=== PATIENT | female | born 1990 | race Caucasian/White ===

== ENCOUNTER 2017-06-07 17:10 | Emergency (ER) | payer SELFPAY ==
[~2017-06-07] VITALS: Ht 160 cm; Wt 96.0 kg
[~2017-06-07 17:10] MED LIST: BCPILLS PO; LEVO50TA6 PO
[2017-06-07 17:22] VITALS: TEMP 37; Ht 160 cm; Wt 96.0 kg
[2017-06-07] MEDS ORDERED: ACETAMINOPHEN 500 MG TAB PO STA (18:24)
[2017-06-07] MEDS ORDERED: ONDANSETRON INJ 2 MG/ML 2 ML VIAL IV STA (18:24)
[2017-06-07] MEDS ORDERED: SODIUM CHLORIDE 0.9% 1000ML 1,000 ML IV STA (18:24)
[2017-06-07] MEDS ORDERED: KETOROLAC TROMETHAMINE 30 MG/ML VIAL IV STA (18:24)
--- NOTE | 2017-06-07 18:26 | EMERGENCY ROOM VISIT NOTE ---
History Report prepared by Khadaribchhaya: Noemí Brandon Under the Supervision of: Dr. Jose G Layton M.D. First contact with patient: 18:05 Chief Complaint: ABDOMINAL PAIN Stated Complaint: LOWER BACK PAIN, ABD PAIN, NAUSEA, DIZZY History of Present Illness The patient is a 27 year old white female with a past medical history of asthma and hyperthyroidism who presents to the ED with a cc of persistent low back pain beginning last night. Positive nausea, lower abdominal pain, abdominal bloating increased urination, vaginal spotting. Negative recent sick contacts or travel. She rates her pain as a 9/10. Her last BM was a few days ago. She last noticed spotting last night, but has noticed none today. She has never undergone abdominal surgery before. Source of History: patient Onset: last night Position: back Symptom Intensity: 9/10 Timing: other (persistent) Associated Symptoms: + nausea, + abdominal pain, + urinary symptoms ( increased urination) Review of Systems See HPI for pertinent positives and negatives. A total of ten systems were reviewed and were otherwise negative. Past Medical & Surgical Medical Problems: (1) Asthma (2) Hyperthyroidism Surgical Problems: (1) History of tonsillectomy Social History Smoking Status: Former Smoker Alcohol Use: occasionally Drug Use: none Marital Status: single Housing Status: lives with family Occupation Status: employed Current/Historical Medications Scheduled Cephalexin Monohydrate (Keflex), 1 CAP PO BID Levothyroxine Sodium (Levothyroxine Sodium), 50 MCG PO DAILY Scheduled PRN Tramadol (Ultram), 50 MG PO Q8H PRN for Pain Allergies Coded Allergies: Codeine (Verified Allergy, Severe, ANAPHYLAXIS, 06/07/17) Physical Exam Vital Signs Date Time Temp Pulse Resp B/P (MAP) Pulse Ox O2 Delivery O2 Flow Rate FiO2 06/07/17 21:08 87 18 112/69 97 Room Air 06/07/17 17:22 37.0 97 16 134/96 96 Room Air Physical Exam GENERAL: Awake, alert, well-appearing, NAD HENT: Normocephalic, atraumatic. EYES: Normal conjunctiva. Sclera non-icteric. NECK: Supple. No nuchal rigidity. FROM. RESPIRATORY: CTAB, no rhonchi, wheezing, crackles CARDIAC: RRR, no MRG ABDOMEN: Soft, mild generalized tenderness, negative Powers's sign, negative obturator's, negative psoas, BS+ MSK: Bilateral CVA tenderness to palpation. No chest wall TTP, no LE edema NEURO: GCS 15, CN 2-12 intact, moves all 4s on command SKIN: No rash or jaundice noted. Medical Decision & Procedures Laboratory Results 06/07/17 18:34 Red Blood Count 5.26, Mean Corpuscular Volume 81.9, Mean Corpuscular Hemoglobin 26.6, Mean Corpuscular Hemoglobin Concent 32.5, Mean Platelet Volume 11.0, Neutrophils (%) (Auto) 74.6, Lymphocytes (%) (Auto) 18.3, Monocytes (%) (Auto) 5.8, Eosinophils (%) (Auto) 1.1, Basophils (%) (Auto) 0.1, Neutrophils # (Auto) 7.40, Lymphocytes # (Auto) 1.82, Monocytes # (Auto) 0.58, Eosinophils # (Auto) 0.11, Basophils # (Auto) 0.01 06/07/17 18:34 Test 06/07/17 18:32 06/07/17 18:34 Urine Color YELLOW Urine Appearance CLOUDY (CLEAR) Urine pH 6.5 (4.5-7.5) Urine Specific [place] 1.015 (1.000-1.030) Urine Protein 1+ (NEG) Urine Glucose (UA) NEG (NEG) Urine Ketones NEG (NEG) Urine Occult Blood 2+ (NEG) Urine Nitrite NEG (NEG) Urine Bilirubin NEG (NEG) Urine Urobilinogen NEG (NEG) Urine Leukocyte Esterase MODERATE (NEG) Urine WBC (Auto) >30 /hpf (0-5) Urine RBC (Auto) 10-30 /hpf (0-4) Urine Hyaline Casts (Auto) 10-30 /lpf (0-5) Urine Epithelial Cells (Auto) >30 /lpf (0-5) Urine Bacteria (Auto) 1+ (NEG) Urine Yeast (Auto) PRESENT (NONE PRSENT) Urine Test NEG (NEG) White Blood Count 9.93 K/uL (4.8-10.8) Red Blood Count 5.26 M/uL (4.2-5.4) Hemoglobin 14.0 g/dL (12.0-16.0) Hematocrit 43.1 % (37-47) Mean Corpuscular Volume 81.9 fL (80-100) Mean Corpuscular Hemoglobin 26.6 pg (25-34) Mean Corpuscular Hemoglobin Concent 32.5 g/dl (32-36) Platelet Count 210 K/uL (130-400) Mean Platelet Volume 11.0 fL (7.4-10.4) Neutrophils (%) (Auto) 74.6 % Lymphocytes (%) (Auto) 18.3 % Monocytes (%) (Auto) 5.8 % Eosinophils (%) (Auto) 1.1 % Basophils (%) (Auto) 0.1 % Neutrophils # (Auto) 7.40 K/uL (1.4-6.5) Lymphocytes # (Auto) 1.82 K/uL (1.2-3.4) Monocytes # (Auto) 0.58 K/uL (0.11-0.59) Eosinophils # (Auto) 0.11 K/uL (0-0.5) Basophils # (Auto) 0.01 K/uL (0-0.2) RDW Standard Deviation 42.4 fL (36.4-46.3) RDW Coefficient of Variation 14.3 % (11.5-14.5) Immature Granulocyte % (Auto) 0.1 % Immature Granulocyte # (Auto) 0.01 K/uL (0.00-0.02) Anion Gap 8.0 mmol/L (3-11) Est Creatinine Clear Calc Drug Dose 123.1 ml/min Estimated GFR () 124.4 Estimated GFR (Non- 107.3 BUN/Creatinine Ratio 9.6 (10-20) Calcium Level 9.8 mg/dl (8.5-10.1) Total Bilirubin 0.5 mg/dl (0.2-1) Direct Bilirubin 0.1 mg/dl (0-0.2) Aspartate Amino Transf (AST/SGOT) 15 U/L (15-37) Alanine Aminotransferase (ALT/SGPT) 26 U/L (12-78) Alkaline Phosphatase 77 U/L (45-117) Total Protein 8.5 gm/dl (6.4-8.2) Albumin 4.0 gm/dl (3.4-5.0) Lipase 80 U/L (73-393) Laboratory results reviewed by me Medications Administered Medications (Trade) Dose Ordered Sig/Samantha Route Start Time Stop Time Status Last Admin Dose Admin Sodium Chloride 1,000 ml @ 999 mls/hr Q1H1M STAT IV 06/07/17 18:24 06/07/17 19:24 DC 06/07/17 19:52 999 MLS/HR Ondansetron HCl (Zofran Inj) 4 mg NOW STAT IV 06/07/17 18:24 06/07/17 18:26 DC 06/07/17 19:52 4 MG Ketorolac Tromethamine (Toradol Inj) 30 mg NOW STAT IV 06/07/17 18:24 06/07/17 18:26 DC 06/07/17 19:53 30 MG Acetaminophen (Tylenol Tab) 1,000 mg NOW STAT PO 06/07/17 18:24 06/07/17 18:26 DC 06/07/17 19:53 1,000 MG Ceftriaxone Sodium (Rocephin Inj) 1 gm NOW STAT IV 06/07/17 19:41 06/07/17 19:42 DC 06/07/17 20:00 1 GM Fluconazole (Diflucan Tab) 150 mg STK-MED ONCE .ROUTE 06/07/17 19:58 06/07/17 19:59 DC 06/07/17 20:02 150 MG Menthol ([place]) 1 yan NOW STAT PO 06/07/17 19:59 06/07/17 20:00 DC 06/07/17 21:06 24 YAN ED Course 1818: The patient was evaluated in room C1. A complete history and physical exam was performed. 1823: Acetaminophen 1000 mg PO, Toradol 30 mg IV, Zofran 4 mg IV, NSS 1000 ml @ 999 mls/hr IV. 1940: Rocephin 1 gm IV. 1947: I reevaluated the patient. She is feeling much better. I discussed her results and discharge instructions and she verbalized complete understanding and agreement. 1957: Fluconazole 150 mg IV. 1958: Menthol 1 oz PO. Medical Decision The patient is a 27 year old white female with a past medical history of asthma and hyperthyroidism who presents to the ED with a cc of persistent low back pain beginning last night. Positive nausea, lower abdominal pain, abdominal bloating increased urination, vaginal spotting. Negative recent sick contacts or travel. Triage Nursing notes reviewed. The patient's presentation and history were concerning for appendicitis, diverticulitis, PUD, biliary pathology, UTI, pancreatitis, obstruction, mesenteric ischemia, aortic pathology, infections, inflammatory bowel disease, renal colic, as well as others were entertained. Patient was seen and evaluated the bedside. Patient did have a recent URI. Patient was still having some mild congestion. Patient was complaining of some low back pain in addition to some mild lower abdominal pain. Patient's states she did have some vaginal spotting yesterday. Patient did have some mild left lower CVA tenderness to palpation. Patient had IV fluids symptomatically treatment in addition to blood work and UA were completed. Patient's UA did show yeast and infectious symptoms. Patient was treated with antibiotics. Likely cystitis. Renal function normal, WBC 9K, less likely obstructing stone. Patient feeling improved. Completed 1st dose of abx. Given f/u, d/c, and return precautions, agreed w/ POC, and was d/c'ed to home. Medication Reconcilliation Current Medication List: was personally reviewed by me Blood Pressure Screening Patient's blood pressure: Normal blood pressure Blood pressure disposition: Did not require urgent referral Impression Primary Impression: Cystitis Additional Impressions: URI (upper respiratory infection) Yeast cystitis Scribe Attestation The scribe's documentation has been prepared under my direction and personally reviewed by me in its entirety. I confirm that the note above accurately reflects all work, treatment, procedures, and medical decision making performed by me. Departure Information Dispostion Home / Self-Care Prescriptions Cephalexin Monohydrate (Keflex) 500 Mg Cap 1 CAP PO BID for 7 Days, #14 CAP Prov: Jose G Layton M.D. 06/07/17 Tramadol (Ultram) 50 Mg Tab 50 MG PO Q8H Y for Pain, #9 TAB Prov: Jose G Layton M.D. 06/07/17 Referrals No Doctor, Assigned (PCP) Patient Instructions ED UTI Cystitis Female, My [facility], Vaginal Infec Yeast Additional Instructions Please return to the emergency department if you have worsening or recurrent symptoms not amenable to at-home treatment. Please call for a follow-up appointment with her primary care physician. Please take your medications as prescribed. If you have other concerns and/or complaints please feel free to also call your primary care physician's office or return the ED for further evaluation, management, and treatment. You may take 600 mg Ibuprofen every 6 hours as needed for pain with food for no more than 2 consecutive days. You may take tylenol 1000mg every 6 hours as needed for pain. You may take motrin and tylenol separately or at the same time. Take tramadol for breakthrough pain. You have been examined and treated today on an emergency basis only. This is not a substitute for, or an effort to provide, complete comprehensive medical care. It is impossible to recognize and treat all injuries or illnesses in a single emergency department visit. It is therefore important that you follow up closely with [facility]. Call as soon as possible for an appointment. Thank you for your time and consideration. I look forward to speaking with you again soon. Please don't hesitate to call us if you have any questions. Problem Qualifiers Additional Impressions: URI (upper respiratory infection) URI type: unspecified viral URI Qualified Codes: J06.9 - Acute upper respiratory infection, unspecified; B97.89 - Other viral agents as the cause of diseases classified elsewhere
[2017-06-07 18:53] LABS: BASO % 0.1 %; BASO ABS # 0.01 K/uL (0-0.2); COMPLETE YES; EOS % 1.1 %; HEMATOCRIT 43.1 % (37-47); IG% 0.1 %; LYMPH % 18.3 %; LYMPH ABS # 1.82 K/uL (1.2-3.4); MEAN CELL VOLUME 81.9 fL (80-100); MEAN CORPUSCULAR HEMOGLOBIN 26.6 pg (25-34); MEAN CORPUSCULAR HGB CONC 32.5 g/dl (32-36); MONO % 5.8 %; NEUT % 74.6 %; PLATELET COUNT 210 K/uL (130-400); RED BLOOD COUNT 5.26 M/uL (4.2-5.4); WHITE BLOOD COUNT 9.93 K/uL (4.8-10.8)
[2017-06-07 19:01] LABS: URINE APPEARANCE CLOUDY (CLEAR); URINE BILIRUBIN NEG (NEG); URINE COLOR YELLOW; URINE EPITHELIAL CELL AUTO >30 /lpf (0-5); URINE NITRITE NEG (NEG); URINE PH 6.5 (4.5-7.5); URINE SPECIFIC GRAVITY 1.015 (1.000-1.030); UROBILINOGEN NEG (NEG); ZZUR CULT IF INDIC CLEAN CATCH YES
[2017-06-07 19:02] LABS: MANUAL MICROSCOPIC REQUIRED? NO; REVIEW REQ? YES
[2017-06-07 19:09] LABS: BUN/CREATININE RATIO 9.6 (10-20); CALCIUM 9.8 mg/dl (8.5-10.1); CREATININE 0.77 mg/dl (0.60-1.20); POTASSIUM 3.6 mmol/L (3.5-5.1)
[2017-06-07] MEDS ORDERED: FLUCONAZOLE 100 MG TAB PO STA (19:41)
[2017-06-07] MEDS ORDERED: CEFTRIAXONE SOD INJ 1 GM ADDVIAL IV STA (19:41)
[2017-06-07] MEDS ORDERED: FLUCONAZOLE 50 MG TAB ONE (19:58)
[2017-06-07] MEDS ORDERED: COUGH DROP (SUGAR FREE) LOZ 24 LOZ/1 BOX PO STA (19:59)
[2017-06-07] MEDS ORDERED: TRAM-10 PO (20:07)
[2017-06-07] MEDS ORDERED: CEPH500C PO (20:07)
[2017-06-07 21:08] VITALS: BP 112/69; PULSE 87; O2SAT 97
== END 2017-06-07 21:08 | disposition home or self-care (01) ==
LOC: C.EDB 17:11 → C.EDC 21:08
DX: B37.41 Candidal cystitis and urethritis (principal); J06.9 Acute upper respiratory infection, unspecified; J45.909 Unspecified asthma, uncomplicated; E05.90 Thyrotoxicosis, unspecified without thyrotoxic crisis or storm; Z87.891 Personal history of nicotine dependence

== ENCOUNTER 2017-07-26 20:16 | Emergency (ER) | payer SELFPAY ==
[~2017-07-26] VITALS: Ht 160 cm; Wt 96.9 kg
[~2017-07-26 20:16] MED LIST changes: -BCPILLS PO; -LEVO50TA6 PO; +TRAM-10 PO
[2017-07-26 20:21] VITALS: TEMP 37.7; Ht 160 cm; Wt 96.9 kg
[2017-07-26] MEDS ORDERED: ONDANSETRON INJ 2 MG/ML 2 ML VIAL IV STA (20:35)
--- NOTE | 2017-07-26 20:39 | EMERGENCY ROOM VISIT NOTE ---
History First contact with patient: 20:25 Chief Complaint: VOMITING Stated Complaint: VOMITING,WEAKNESS,HEADACHE,ABDOMINAL PAIN Nursing Triage Summary: pt states vomiting many times today with diarrhea, pt states feeling weak and dehydrated. Pt states all family members have been ill with similar symptoms. History of Present Illness The patient is a 27 year old female who presents to the Emergency Room with complaints of vomiting and diarrhea that started this morning. The patient is now unable to keep down liquids. She does not report any fever. She denies any significant abdominal pain. She is experiencing some back pain, that she contributes to vomiting and leaning over the toilet. She denies any urinary symptoms. The patient reports that her entire household has similar symptoms. Review of Systems 10 system review performed and negative unless noted in HPI or below Past Medical/Surgical History Medical Problems: (1) Asthma (2) Hyperthyroidism Surgical Problems: (1) History of tonsillectomy Hypothyroidism Social History Smoking Status: Current Every Day Smoker Alcohol Use: occasionally Drug Use: none Marital Status: single Housing Status: lives with family Occupation Status: employed Current/Historical Medications Scheduled Levothyroxine Sodium (Levothyroxine Sodium), 50 MCG PO DAILY Physical Exam Vital Signs Date Time Temp Pulse Resp B/P (MAP) Pulse Ox O2 Delivery O2 Flow Rate FiO2 07/26/17 22:01 95 17 114/78 95 Room Air 07/26/17 20:36 102 07/26/17 20:21 37.7 120 18 126/85 96 Room Air Physical Exam VITALS: Vitals are noted on the nurse's note and reviewed by myself. Vital signs stable. GENERAL: 27-year-old female, mildly uncomfortable and weak., SKIN: The skin was without rashes, erythema, edema, or bruising. HEAD: Normocephalic atraumatic. MOUTH: Mucous membranes are dry NECK: Supple without nuchal rigidity. No JVD. HEART: Regular rate and rhythm without murmurs gallops or rubs. LUNGS: Clear to auscultation bilaterally without wheezes, rales or rhonchi. No accessory muscle use. ABDOMEN: Positive bowel sounds x 4.Soft, nontender, without organomegaly. No guarding or rebound tenderness. No CVA tenderness bilaterally MUSCULOSKELETAL: No muscle atrophy, erythema, or edema noted. Strength 5/5 throughout. NEURO: Patient was alert and oriented to person place and time. Normal sensation to touch. No focal neurological deficits. Medical Decision & Procedures Laboratory Results 07/26/17 20:59 Red Blood Count 4.95, Mean Corpuscular Volume 83.4, Mean Corpuscular Hemoglobin 27.1, Mean Corpuscular Hemoglobin Concent 32.4, Mean Platelet Volume 11.7, Neutrophils (%) (Auto) 90.0, Lymphocytes (%) (Auto) 5.1, Monocytes (%) (Auto) 4.2, Eosinophils (%) (Auto) 0.2, Basophils (%) (Auto) 0.2, Neutrophils # (Auto) 10.15, Lymphocytes # (Auto) 0.57, Monocytes # (Auto) 0.47, Eosinophils # (Auto) 0.02, Basophils # (Auto) 0.02 07/26/17 20:59 Test 07/26/17 20:55 07/26/17 20:59 Urine Color YELLOW Urine Appearance CLOUDY (CLEAR) Urine pH 6.5 (4.5-7.5) Urine Specific [place] 1.022 (1.000-1.030) Urine Protein 1+ (NEG) Urine Glucose (UA) NEG (NEG) Urine Ketones TRACE (NEG) Urine Occult Blood NEG (NEG) Urine Nitrite NEG (NEG) Urine Bilirubin NEG (NEG) Urine Urobilinogen NEG (NEG) Urine Leukocyte Esterase MODERATE (NEG) Urine WBC (Auto) 10-30 /hpf (0-5) Urine RBC (Auto) 10-30 /hpf (0-4) Urine Hyaline Casts (Auto) 10-30 /lpf (0-5) Urine Epithelial Cells (Auto) >30 /lpf (0-5) Urine Bacteria (Auto) 1+ (NEG) Urine Test NEG (NEG) White Blood Count 11.26 K/uL (4.8-10.8) Red Blood Count 4.95 M/uL (4.2-5.4) Hemoglobin 13.4 g/dL (12.0-16.0) Hematocrit 41.3 % (37-47) Mean Corpuscular Volume 83.4 fL (80-100) Mean Corpuscular Hemoglobin 27.1 pg (25-34) Mean Corpuscular Hemoglobin Concent 32.4 g/dl (32-36) Platelet Count 198 K/uL (130-400) Mean Platelet Volume 11.7 fL (7.4-10.4) Neutrophils (%) (Auto) 90.0 % Lymphocytes (%) (Auto) 5.1 % Monocytes (%) (Auto) 4.2 % Eosinophils (%) (Auto) 0.2 % Basophils (%) (Auto) 0.2 % Neutrophils # (Auto) 10.15 K/uL (1.4-6.5) Lymphocytes # (Auto) 0.57 K/uL (1.2-3.4) Monocytes # (Auto) 0.47 K/uL (0.11-0.59) Eosinophils # (Auto) 0.02 K/uL (0-0.5) Basophils # (Auto) 0.02 K/uL (0-0.2) RDW Standard Deviation 42.2 fL (36.4-46.3) RDW Coefficient of Variation 13.8 % (11.5-14.5) Immature Granulocyte % (Auto) 0.3 % Immature Granulocyte # (Auto) 0.03 K/uL (0.00-0.02) Anion Gap 9.0 mmol/L (3-11) Est Creatinine Clear Calc Drug Dose 136.1 ml/min Estimated GFR () 139.6 Estimated GFR (Non- 120.4 BUN/Creatinine Ratio 15.0 (10-20) Calcium Level 9.5 mg/dl (8.5-10.1) Magnesium Level 1.8 mg/dl (1.8-2.4) Total Bilirubin 0.5 mg/dl (0.2-1) Aspartate Amino Transf (AST/SGOT) 17 U/L (15-37) Alanine Aminotransferase (ALT/SGPT) 42 U/L (12-78) Alkaline Phosphatase 75 U/L (45-117) Total Protein 8.0 gm/dl (6.4-8.2) Albumin 3.8 gm/dl (3.4-5.0) Globulin 4.2 gm/dl (2.5-4.0) Albumin/Globulin Ratio 0.9 (0.9-2) Lipase 74 U/L (73-393) Medications Administered Medications (Trade) Dose Ordered Sig/Samantha Route Start Time Stop Time Status Last Admin Dose Admin Sodium Chloride 1,000 ml @ 999 mls/hr Q1H1M ONCE IV 07/26/17 20:45 07/26/17 21:45 DC 07/26/17 20:58 999 MLS/HR Ondansetron HCl (Zofran Inj) 4 mg NOW STAT IV 07/26/17 20:35 07/26/17 20:36 DC 07/26/17 20:58 4 MG Ketorolac Tromethamine (Toradol Inj) 30 mg NOW STAT IV 07/26/17 21:39 07/26/17 21:41 DC 07/26/17 21:54 30 MG Promethazine HCl (Phenergan Inj) 25 mg NOW STAT IM 07/26/17 21:39 07/26/17 21:41 DC 07/26/17 21:53 25 MG Sodium Chloride 1,000 ml @ 999 mls/hr Q1H1M ONCE IV 07/26/17 22:00 07/26/17 23:00 DC 07/26/17 22:01 999 MLS/HR ED Course Patient was seen and examined Vital signs including blood pressure were reviewed medications list was verified with patient Labs were obtained, and a saline lock was established The patient was medicated with Zofran. She was hydrated with 1 L of normal saline. Upon reevaluation, the patient was complaining of a headache. She was also still complaining of nausea. She was given Phenergan 25 mg IM. She was hydrated with an additional liter of saline. She was also given Toradol 30 mg IV for her headache. Upon reevaluation, the patient was resting comfortably in bed. She was given a trial of liquids. She tolerated these without difficulty. We discussed the results of her workup. She voiced understanding. I reviewed discharge instructions the patient. They voiced understanding and had no further questions. Medical Decision DIFFERENTIAL DIAGNOSIS: Gastroenteritis, Hepatitis, cholecystitis, cholangitis, biliary colic, pancreatitis, appendicitis, inguinal hernia, nephrolithiasis, inflammatory bowel disease, mesenteric adenitis, peptic ulcer disease, GERD, gastritis, pancreatitis,, bowel obstruction, splenic infarct, diverticulitis, mesenteric ischemia, metabolic, peritonitis, among others. This patient is a 27-year-old female that presents emergency department with complaints of nausea, vomiting and diarrhea. This is likely infectious in etiology given the fact that her entire household has similar symptoms. On exam , the patient was dehydrated. She was somewhat tachycardic. Her abdomen was benign on exam. There is mild leukocytosis, which I would expect given the infectious nature and the vomiting. She did require 2 doses of antiemetics. She had good symptomatic relief with Phenergan. She was tolerating liquids. I believe she is stable to be discharged home. She was sent home with a home pack for Phenergan. She was advised follow-up with her primary care physician if there is no improvement in the next 2-3 days. She will return to the ER with any new, worsening or persistent symptoms. Of note, the patient did have 10-30 wbc's in her urine. She was asked about urinary symptoms, which she denied. She did not have any CVA tenderness. She was treated for a urinary tract infection approximately 2 months ago. This appears to be appropriately treated. A urine culture was resent tonjazmin. This chart was completed in part utilizing [employer] Speech Voice Recognition software. Attempts were made to minimize the grammatical errors, random word insertions, pronoun errors and incomplete sentences. Any formal questions or concerns about the content, text or information contained within the body of this dictation should be directly addressed to the provider for clarification. Medication Reconcilliation Current Medication List: was personally reviewed by me Blood Pressure Screening Patient's blood pressure: Normal blood pressure Impression Primary Impression: Nausea, vomiting, and diarrhea Departure Information Dispostion Home / Self-Care Condition FAIR Prescriptions Promethazine Hcl (Phenergan) 25 Mg Tab 25 MG PO Q6H Y for Nausea, #12 TAB Prov: Lilo Giang PA-C 07/26/17 Referrals No Doctor, Assigned (PCP) Patient Instructions My [facility] Additional Instructions You were evaluated in the emergency department for vomiting and diarrhea. This is likely a viral infection of the GI tract. I would recommend clear liquids only such as broth, sports drinks, alejandra shanna or Sprite for the night. If you are feeling better in the morning, advance to a bland diet with dry toast and saltine crackers. Please take Phenergan every 6 hours as needed for nausea Please follow-up with your primary care physician if your symptoms are not improving in the next 2-3 days Please return to the emergency department with any new, worsening or persistent symptoms.
[2017-07-26] MEDS ORDERED: SODIUM CHLORIDE 0.9% 1000ML 1,000 ML IV ONE ×2 (20:45→22:00)
[2017-07-26 21:16] LABS: BASO % 0.2 %; BASO ABS # 0.02 K/uL (0-0.2); COMPLETE YES; EOS % 0.2 %; HEMATOCRIT 41.3 % (37-47); IG% 0.3 %; LYMPH % 5.1 %; LYMPH ABS # 0.57 K/uL (1.2-3.4); MEAN CELL VOLUME 83.4 fL (80-100); MEAN CORPUSCULAR HEMOGLOBIN 27.1 pg (25-34); MEAN CORPUSCULAR HGB CONC 32.4 g/dl (32-36); MEAN PLATELET VOLUME 11.7 fL (7.4-10.4); MONO % 4.2 %; PLATELET COUNT 198 K/uL (130-400); RED BLOOD COUNT 4.95 M/uL (4.2-5.4); WHITE BLOOD COUNT 11.26 K/uL (4.8-10.8)
[2017-07-26 21:16] LABS: URINE APPEARANCE CLOUDY (CLEAR); URINE BILIRUBIN NEG (NEG); URINE COLOR YELLOW; URINE EPITHELIAL CELL AUTO >30 /lpf (0-5); URINE NITRITE NEG (NEG); URINE PH 6.5 (4.5-7.5); URINE SPECIFIC GRAVITY 1.022 (1.000-1.030); UROBILINOGEN NEG (NEG)
[2017-07-26] MEDS ORDERED: LEVO50TA6 PO (21:21)
[2017-07-26 21:24] LABS: MANUAL MICROSCOPIC REQUIRED? NO; REVIEW REQ? NO
[2017-07-26 21:34] LABS: CALCIUM 9.5 mg/dl (8.5-10.1); CREATININE 0.7 mg/dl (0.60-1.20); MAGNESIUM 1.8 mg/dl (1.8-2.4); POTASSIUM 3.5 mmol/L (3.5-5.1)
[2017-07-26 21:37] LABS: ALB/GLOB RATIO 0.9 (0.9-2)
[2017-07-26] MEDS ORDERED: PROMETHAZINE HCL INJ 25 MG/ML 1 ML VIAL IM STA (21:39)
[2017-07-26] MEDS ORDERED: KETOROLAC TROMETHAMINE 30 MG/ML VIAL IV STA (21:39)
[2017-07-26] MEDS ORDERED: PHENERGAN 25MG HOMEPACK PO ONE (22:45)
[2017-07-26] MEDS ORDERED: PROM25TA9 PO (23:12)
[2017-07-26 23:35] VITALS: BP 118/73; PULSE 93; O2SAT 97
== END 2017-07-26 23:36 | disposition home or self-care (01) ==
LOC: C.EDB 20:17
DX: R11.2 Nausea with vomiting, unspecified (principal); R19.7 Diarrhea, unspecified; J45.909 Unspecified asthma, uncomplicated; E05.90 Thyrotoxicosis, unspecified without thyrotoxic crisis or storm; F17.200 Nicotine dependence, unspecified, uncomplicated; Z79.899 Other long term (current) drug therapy; Z98.890 Other specified postprocedural states

== ENCOUNTER → 2017-09-25 | Outpatient (CLI) | payer OTHER ==
[~2017-09-25] MED LIST changes: +LEVO50TA6 PO; +PROM25TA9 PO; -TRAM-10 PO
== END | disposition home or self-care (01) ==
LOC: C.LAB1850 16:42
PROVIDERS: ATTEND Obstetrics & Gynecology
DX: N89.8 Other specified noninflammatory disorders of vagina (principal); N93.9 Abnormal uterine and vaginal bleeding, unspecified

== ENCOUNTER 2018-01-02 09:50 | Emergency (ER) | payer OTHER ==
[~2018-01-02] VITALS: Ht 160 cm; Wt 97.0 kg
[2018-01-02 09:54] VITALS: TEMP 37.4; Ht 160 cm; Wt 97.0 kg
[2018-01-02] MEDS ORDERED: SODIUM CHLORIDE 0.9% 1000ML 2,000 ML IV STA (10:09)
[2018-01-02] MEDS ORDERED: KETOROLAC TROMETHAMINE 30 MG/ML VIAL IV STA (10:09)
--- NOTE | 2018-01-02 10:29 | EMERGENCY ROOM VISIT NOTE ---
History Report prepared by Marko: Raheem Ramírez Under the Supervision of: Dr. Wilner Benson M.D. First contact with patient: 10:05 Chief Complaint: ABDOMINAL PAIN Stated Complaint: REALLY BAD STOMACH PAINS, STREP THROAT Nursing Triage Summary: Pt presents with "lower abd pain into private area for a couple days. I have vaginal bleeding too. It isn't time for my period. I am on control pill. The pain comes every couple mins. I have been taking mortin, but it doesn't help. I was dx with strep throat on ." Denies n/v/d. History of Present Illness The patient is a 27 year old female who presents to the Emergency Room with complaints of worsening lower abdominal pain for the past couple of days that is radiating into the groin. The patient additionally notes that she has been having some heavy vaginal bleeding, and she changes pads 4-5 times per day which is more for her. She additionally reports that she has been having clots in her blood. She notes that her last period was a month ago, though she usually gets it every three months due to her control regimen. She states that she has had uncommon breakthrough periods in the past, though she states that she has never had pain like this before. The patient states that she has tried taking Motrin this morning, but she states that nothing has helped the pain. She denies any nausea, vomiting, chills, cough, congestion, burning with urination, vaginal itching or burning. The patient states that she has a headache, lower back pain, and a fever up to 100.4, though she was diagnosed with strep two days ago. She is currently being treated with amoxicillin. She has no concern for STI, and she has no history of gonorrhea or chlamydia in the past Source of History: patient Onset: the past couple of days Position: abdomen (lower) Timing: worsening Modifying Factors (Relieving): other (nothing) Associated Symptoms: + fevers, + headache, + back pain, No chills, No cough , No nausea, No vomiting Note: Associated symptoms: Vaginal bleeding Review of Systems See HPI for pertinent positives and negatives. A total of ten systems were reviewed and were otherwise negative. Past Medical & Surgical Medical Problems: (1) Asthma (2) Hyperthyroidism Surgical Problems: (1) History of tonsillectomy Social History Smoking Status: Former Smoker Alcohol Use: occasionally Drug Use: none Marital Status: single Housing Status: lives with family Occupation Status: employed Current/Historical Medications Scheduled Amoxicillin (Amoxil), 500 MG PO BID Control Pills ( Control Pills), 1 TAB PO DAILY Allergies Coded Allergies: Codeine (Verified Allergy, Severe, ANAPHYLAXIS, 01/02/18) Physical Exam Vital Signs Date Time Temp Pulse Resp B/P (MAP) Pulse Ox O2 Delivery O2 Flow Rate FiO2 01/02/18 13:16 93 18 122/72 97 Room Air 01/02/18 11:44 99 18 126/70 97 Room Air 01/02/18 09:54 37.4 110 18 135/64 96 Room Air Physical Exam GENERAL: Awake, alert, anxious-appearing, in no distress HENT: Normocephalic, atraumatic. Oropharynx unremarkable. Dry mucous membranes EYES: Normal conjunctiva. Sclera non-icteric. NECK: Supple. No nuchal rigidity. FROM. No JVD. RESPIRATORY: Clear to auscultation. CARDIAC: Regular rate, normal rhythm. Extremities warm and well perfused. Pulses equal. ABDOMEN: Mild suprapubic tenderness. No peritoneal signs. Soft, non-distended. No rebound or guarding. No masses. RECTAL: Deferred. MUSCULOSKELETAL: Chest examination reveals no tenderness. The back is symmetrical on inspection without obvious abnormality. There is no CVA tenderness to palpation. No joint edema. LOWER EXTREMITIES: Calves are equal size bilaterally and non-tender. No edema. No discoloration. NEURO: Normal sensorium. No sensory or motor deficits noted. SKIN: No rash or jaundice noted. Medical Decision & Procedures ER Provider Diagnostic Interpretation: Radiology results as stated below per my review and radiologist interpretation: PELVIC ULTRASOUND, TRANSABDOMINAL AND TRANSVAGINAL HISTORY: Lower abdominal/pelvic pain. COMPARISON: None. FINDINGS: Uterus: 6.6 x 3.6 x 4.0 cm. There is a tiny Nabothian cyst at the cervix. Endometrial stripe: 8 mm in thickness. Right ovary: Normal in size and demonstrates normal color flow. Left ovary: Normal in size and demonstrates normal color flow. Miscellaneous:No pelvic free fluid. IMPRESSION: Normal pelvic ultrasound. Electronically signed by: Kumar Clarke M.D. 01/02/2018 11:43 AM Dictated Date/Time: 01/02/2018 11:41 AM Laboratory Results 01/02/18 10:22 Red Blood Count 4.92, Mean Corpuscular Volume 80.5, Mean Corpuscular Hemoglobin 26.6, Mean Corpuscular Hemoglobin Concent 33.1, Mean Platelet Volume 10.9, Neutrophils (%) (Auto) 75.5, Lymphocytes (%) (Auto) 15.7, Monocytes (%) (Auto) 8.0, Eosinophils (%) (Auto) 0.4, Basophils (%) (Auto) 0.1, Neutrophils # (Auto) 5.89, Lymphocytes # (Auto) 1.22, Monocytes # (Auto) 0.62, Eosinophils # (Auto) 0.03, Basophils # (Auto) 0.01 01/02/18 10:22 Test 01/02/18 10:22 01/02/18 12:10 White Blood Count 7.79 K/uL (4.8-10.8) Red Blood Count 4.92 M/uL (4.2-5.4) Hemoglobin 13.1 g/dL (12.0-16.0) Hematocrit 39.6 % (37-47) Mean Corpuscular Volume 80.5 fL (80-100) Mean Corpuscular Hemoglobin 26.6 pg (25-34) Mean Corpuscular Hemoglobin Concent 33.1 g/dl (32-36) Platelet Count 186 K/uL (130-400) Mean Platelet Volume 10.9 fL (7.4-10.4) Neutrophils (%) (Auto) 75.5 % Lymphocytes (%) (Auto) 15.7 % Monocytes (%) (Auto) 8.0 % Eosinophils (%) (Auto) 0.4 % Basophils (%) (Auto) 0.1 % Neutrophils # (Auto) 5.89 K/uL (1.4-6.5) Lymphocytes # (Auto) 1.22 K/uL (1.2-3.4) Monocytes # (Auto) 0.62 K/uL (0.11-0.59) Eosinophils # (Auto) 0.03 K/uL (0-0.5) Basophils # (Auto) 0.01 K/uL (0-0.2) RDW Standard Deviation 40.3 fL (36.4-46.3) RDW Coefficient of Variation 13.8 % (11.5-14.5) Immature Granulocyte % (Auto) 0.3 % Immature Granulocyte # (Auto) 0.02 K/uL (0.00-0.02) Anion Gap 3.0 mmol/L (3-11) Est Creatinine Clear Calc Drug Dose 127.1 ml/min Estimated GFR () 128.4 Estimated GFR (Non- 110.8 BUN/Creatinine Ratio 8.8 (10-20) Calcium Level 8.9 mg/dl (8.5-10.1) Total Bilirubin 0.3 mg/dl (0.2-1) Direct Bilirubin < 0.1 mg/dl (0-0.2) Aspartate Amino Transf (AST/SGOT) 11 U/L (15-37) Alanine Aminotransferase (ALT/SGPT) 19 U/L (12-78) Alkaline Phosphatase 54 U/L (45-117) Total Protein 8.0 gm/dl (6.4-8.2) Albumin 3.4 gm/dl (3.4-5.0) Lipase 75 U/L (73-393) Urine Color ORANGE Urine Appearance CLEAR (CLEAR) Urine pH 6.5 (4.5-7.5) Urine Specific Lutz 1.020 (1.000-1.030) Urine Protein NEG (NEG) Urine Glucose (UA) NEG (NEG) Urine Ketones NEG (NEG) Urine Occult Blood 3+ (NEG) Urine Nitrite NEG (NEG) Urine Bilirubin NEG (NEG) Urine Urobilinogen NEG (NEG) Urine Leukocyte Esterase MODERATE (NEG) Urine WBC (Auto) 10-30 /hpf (0-5) Urine RBC (Auto) >30 /hpf (0-4) Urine Hyaline Casts (Auto) 1-5 /lpf (0-5) Urine Epithelial Cells (Auto) >30 /lpf (0-5) Urine Bacteria (Auto) NEG (NEG) Urine Test NEG (NEG) Laboratory results reviewed by me Medications Administered Medications (Trade) Dose Ordered Sig/Samantha Route Start Time Stop Time Status Last Admin Dose Admin Sodium Chloride 2,000 ml @ 999 mls/hr Q2H1M STAT IV 01/02/18 10:09 01/02/18 12:09 DC 01/02/18 10:39 999 MLS/HR Ketorolac Tromethamine (Toradol Inj) 15 mg NOW STAT IV 4/26/18 10:09 01/02/18 10:17 DC 01/02/18 10:39 15 MG ED Course 1005: The patient was evaluated in room B11. A complete history and physical exam was performed. 1305: I reevaluated the patient. Discussed results and discharge instructions: she verbalized understanding and agreement. The patient is ready for discharge. Medical Decision I reviewed the patient's past medical history, medications, and the nursing notes as described above. Differential diagnosis: Etiologies such as appendicitis, diverticulitis, PUD, biliary pathology, UTI, pancreatitis, obstruction, mesenteric ischemia, aortic pathology, infections, inflammatory bowel disease, renal colic, as well as others were entertained. The patient is a 27-year-old woman with a past medical history of irregular menstrual cycles currently on OCPs on a 3 month cycle presents emergency department with lower abdominal cramping and vaginal bleeding in the setting of being treated for strep throat. Per hpi. On arrival the patient is in no acute distress, afebrile stable vital signs. On exam the patient has mild lower abdominal tenderness with no peritoneal signs. Labs unremarkable including WBC and H/H within normal limits. Chemistry unremarkable. Pelvic ultrasound unremarkable. UA is dirty however the patient is already on amoxicillin for strep throat. Patient was declining pelvic exam despite my explanation that we cannot fully evaluate her medical condition given that she is reporting heavy vaginal bleeding. Patient expressed understanding of this. Given that the patient's H&H is unremarkable with stable vital signs I do not believe there is in any significant hemorrhage. Otherwise, given the patient's history of breakthrough menstrual cycles is most likely that the patient is having her menstrual cycle in the setting of her recently diagnosed strep infection and associated mild dehydration. Otherwise, the patient is feeling improved after IV fluid hydration and Toradol. She will follow-up with her [facility] C[facility] THERAPIST. Findings and plan for follow-up reviewed with patient. Patient agreeable and d/c'd per discharge instructions. Medication Reconcilliation Current Medication List: was personally reviewed by me Blood Pressure Screening Patient's blood pressure: Normal blood pressure Impression Primary Impression: Abdominal cramping Additional Impressions: Menometrorrhagia Dehydration Scribe Attestation The scribe's documentation has been prepared under my direction and personally reviewed by me in its entirety. I confirm that the note above accurately reflects all work, treatment, procedures, and medical decision making performed by me. Departure Information Dispostion Home / Self-Care Referrals No Doctor, Assigned (PCP) Forms HOME CARE DOCUMENTATION FORM, IMPORTANT VISIT INFORMATION Patient Instructions ED Abdominal Pain Unkn Cause, ED Bleed Irregular Vaginal, ED Cramping Menstrual , My [facility] Additional Instructions Please follow up with your computer numerical control grinder in the next week for re-evaluation. Your symptoms are likely related to dehydration in the setting of your strep infection leading to irregular menstrual cycle and increased menstrual pain. Otherwise, your exam, lab results, and ultrasound did not show signs of an emergent condition at this time. Acetaminophen or ibuprofen for pain and fevers as needed. Drink plenty of fluids to ensure hydration. Return to the emergency department for worsening symptoms as described in the accompanying instructions. Problem Qualifiers
[2018-01-02 10:36] LABS: BASO % 0.1 %; BASO ABS # 0.01 K/uL (0-0.2); EOS % 0.4 %; EOS ABS # 0.03 K/uL (0-0.5); HEMATOCRIT 39.6 % (37-47); HEMOGLOBIN 13.1 g/dL (12.0-16.0); IG# 0.02 K/uL (0.00-0.02); LYMPH % 15.7 %; LYMPH ABS # 1.22 K/uL (1.2-3.4); MEAN CELL VOLUME 80.5 fL (80-100); MEAN CORPUSCULAR HEMOGLOBIN 26.6 pg (25-34); MEAN CORPUSCULAR HGB CONC 33.1 g/dl (32-36); MEAN PLATELET VOLUME 10.9 fL (7.4-10.4); MONO ABS # 0.62 K/uL (0.11-0.59); NEUT % 75.5 %; NEUT ABS # 5.89 K/uL (1.4-6.5); PLATELET COUNT 186 K/uL (130-400); RED CELL DISTRIBUTION WIDTH CV 13.8 % (11.5-14.5); RED CELL DISTRIBUTION WIDTH SD 40.3 fL (36.4-46.3); WHITE BLOOD COUNT 7.79 K/uL (4.8-10.8)
[2018-01-02 10:51] LABS: ALBUMIN 3.4 gm/dl (3.4-5.0); ALT/SGPT 19 U/L (12-78); AST/SGOT 11 U/L (15-37); BLOOD UREA NITROGEN 7 mg/dl (7-18); CALCIUM 8.9 mg/dl (8.5-10.1); CARBON DIOXIDE 27 mmol/L (21-32); CREATININE 0.75 mg/dl (0.60-1.20); GLUCOSE 76 mg/dl (70-99); LIPASE 75 U/L (73-393); POTASSIUM 3.6 mmol/L (3.5-5.1); SODIUM 137 mmol/L (136-145)
[2018-01-02 10:54] LABS: ALKALINE PHOSPHATASE 54 U/L (45-117)
--- NOTE | 2018-01-02 11:44 | DIAGNOSTIC IMAGING REPORT ---
PELVIC ULTRASOUND, TRANSABDOMINAL AND TRANSVAGINAL HISTORY: Lower abdominal/pelvic pain. COMPARISON: None. FINDINGS: Uterus: 6.6 x 3.6 x 4.0 cm. There is a tiny Nabothian cyst at the cervix. Endometrial stripe: 8 mm in thickness. Right ovary: Normal in size and demonstrates normal color flow. Left ovary: Normal in size and demonstrates normal color flow. Miscellaneous:No pelvic free fluid. IMPRESSION: Normal pelvic ultrasound. Electronically signed by: Kumar Clarke M.D. 01/02/2018 11:43 AM Dictated Date/Time: 01/02/2018 11:41 AM
[2018-01-02] MEDS ORDERED: BCPILLS PO (11:49)
[2018-01-02] MEDS ORDERED: AMOX500C3 PO (11:49)
[2018-01-02 13:16] VITALS: BP 122/72; PULSE 93; O2SAT 97
== END 2018-01-02 13:33 | disposition home or self-care (01) ==
LOC: C.EDB 09:51
DX: R10.30 Lower abdominal pain, unspecified (principal); N92.1 Excessive and frequent menstruation with irregular cycle; E86.0 Dehydration; J45.909 Unspecified asthma, uncomplicated; Z87.891 Personal history of nicotine dependence; Z79.3 Long term (current) use of hormonal contraceptives; Z88.5 Allergy status to narcotic agent

== ENCOUNTER 2019-02-12 07:24 | Inpatient (IN) ==
[2019-02-12] MEDS ORDERED: OXYTOCIN 30 UNITS/500 ML BAG IV PRN (08:03)
[2019-02-12 08:41] LABS: Hematocrit (blood only) 30.8 % (37-47); Hemoglobin 10.1 g/dL (12.0-16.0); Mean Corpuscular Volume 81.9 fL (80-100); Mean Platelet Volume 11.6 fL (7.4-10.4); Platelet Count 175 K/uL (130-400); RDW Coefficient of Variation 16.1 % (11.5-14.5); RDW Standard Deviation 47.8 fL (36.4-46.3); Red Blood Count 3.76 M/uL (4.2-5.4); White Blood Count 13.04 K/uL (4.8-10.8)
[2019-02-12 08:43] LABS: Mean Corpuscular Hgb Conc 32.8 g/dL (32-36)
[2019-02-12] MEDS: LACTATED RINGER'S 1,000 ML IV PRN ×2 (14:28→23:00)
[2019-02-12] MEDS: OXYTOCIN 30 UNITS/500 ML BAG IV PRN (14:29)
[2019-02-12] MEDS ORDERED: BUPIVACAINE 0.25% 30 ML VIAL ONE (15:55)
[2019-02-12] MEDS ORDERED: fentaNYL citrate 100 MCG/2 ML VIAL ONE (15:55)
[2019-02-12] MEDS ORDERED: fentaNYL 2MCG/ML ROPIV 1.25MG/ML 100 ML BAG EPI ONE (15:55)
[2019-02-12] MEDS ORDERED: ePHEDrine sulfate 50 MG/ML AMP ONE (15:55)
--- NOTE | 2019-02-12 16:13 | Labor Progress Brief Note ---
Date of Service February 12, 2019 Subjective Requesting epidural. Assessment & Plan (1) Term : Continue IOL, 40w2d. Recheck after epidural. Present on Admission?: Yes Physical Exam Physical Exam: Last check /-2 FHT Cat 1 now [place] Q3-7 irreg Results & Data Vital Signs (Past 12 Hours) Vital Signs Temp Pulse Resp BP 02/12/19 15:23 106 H 120/69 02/12/19 15:16 37.0 C 18 02/12/19 14:30 36.9 C 18 02/12/19 14:23 103 H 122/74 02/12/19 13:00 102 H 125/74 02/12/19 08:01 102 H 125/74 02/12/19 07:43 102 H 125/74 02/12/19 07:36 36.7 C 18
--- NOTE | 2019-02-12 16:42 | Anesthesiology Consultation ---
Date of Service February 12, 2019 Assessment & Plan Chart Review Chart Review: Acceptable Risk for Labor Epidural Consults Requested none History Height/Weight Height: 5 ft 3 in Weight: 120.202 kg Allergies Allergy/AdvReac Type Severity Reaction Status Date / Time codeine Allergy Severe ANAPHYLAXIS Verified 02/12/19 12:57 hydrocodone [From Vicodin] Allergy Anaphylaxis Verified 02/12/19 12:57 Medications Home Medications Medication Instructions Recorded Confirmed Last Taken PNV cmb#95-ferrous fumarate-FA 1 tab PO QAM 07/25/18 02/12/19 02/11/19 21:00 [] levothyroxine 75 mcg PO DAILY 01/03/19 02/12/19 02/12/19 06:00 Active Medications Generic Name Dose Route Start Last Admin Trade Name Freq PRN Reason Stop Dose Admin Oxytocin 30 units in 500 mls @ 4 mls/hr 02/12/19 08:03 02/12/19 15:34 Pitocin IV 02/14/19 08:02 0.24 units/hr .Q24H PRN 4 mls/hr Labor Induction/Augmentation Titration Protocol 0.24 UNITS/HR Lactated Ringer's 1,000 mls @ 125 mls/hr 02/12/19 08:03 02/12/19 14:28 Lr IV 02/14/19 08:02 125 mls/hr .Q8H PRN Administration L&D Protocol Protocol Past Medical History Medical History First trimester (Acute) Asthma (Chronic) Hypothyroid takes 75mcg - sees Dr. Omega VALLE (pruritic urticarial papules and plaques of ) current Past Family History Family History Grandfather (Paternal) Diabetes Father Cancer Other Heart disease Hypertension Past Surgical History Surgical History Hx of tonsillectomy at age 7 Social History Smoking Status: Never smoker tobacco type: cigarettes Do You Dip or Chew Tobacco: No Hx Alcohol Use: No Hx Substance Use: No substance use type: does not use Physical Exam Vital Signs Last Vital Signs Temp 37.0 C 02/12/19 15:16 Pulse 106 H 02/12/19 15:23 Resp 18 02/12/19 15:16 BP 120/69 02/12/19 15:23
[2019-02-12] MEDS ORDERED: NALOXONE HCL 0.4 MG/1 ML VIAL/CARP IV PRN (16:46)
[2019-02-12] MEDS ORDERED: NALOXONE HCL 1 MG in SODIUM CHLORIDE 0.9% 1000ML 1,000 ML IV PRN (16:46)
[2019-02-12] MEDS ORDERED: NALBUPHINE HCL INJ 10 MG/ML AMP IV PRN (16:46)
[2019-02-12] MEDS ORDERED: ePHEDrine sulfate 50 MG/ML AMP IV PRN (16:46)
[2019-02-12] MEDS ORDERED: DiphenhydrAMINE HCL 50 MG/ML VIAL IV PRN (16:46)
--- NOTE | 2019-02-12 21:33 | Labor Progress Brief Note ---
Date of Service February 12, 2019 Subjective Comfortable with epidural Assessment & Plan (1) Term : Continue titrating pitocin to adequate contractions. Present on Admission?: Yes Physical Exam Physical Exam: FHT Cat 1 [place] Q2-5 irreg Pit @ 10 Cvx /50/-2 Results & Data Vital Signs (Past 12 Hours) Vital Signs Temp Pulse Resp BP Pulse Ox 02/12/19 21:26 100 H 96 02/12/19 21:22 95 H 134/83 02/12/19 21:21 98 H 96 02/12/19 21:16 92 H 97 02/12/19 21:11 96 H 96 02/12/19 21:06 89 128/63 96 02/12/19 21:01 105 H 96 02/12/19 20:57 36.6 C 18 02/12/19 20:56 99 H 96 02/12/19 20:54 102 H 94 02/12/19 20:51 94 H 130/83 96 02/12/19 20:46 85 98 02/12/19 20:41 91 H 98 02/12/19 20:37 90 132/79 02/12/19 20:36 93 H 97 02/12/19 20:31 99 H 97 02/12/19 20:26 95 H 96 02/12/19 20:21 94 H 135/77 97 02/12/19 20:16 95 H 96 02/12/19 20:11 91 H 96 02/12/19 20:06 94 H 133/78 96 02/12/19 20:01 94 H 96 02/12/19 19:56 85 97 02/12/19 19:51 96 H 125/75 97 02/12/19 19:46 92 H 97 02/12/19 19:41 93 H 98 02/12/19 19:36 89 129/75 96 02/12/19 19:31 94 H 96 02/12/19 19:26 100 H 96 02/12/19 19:22 93 H 129/77 02/12/19 19:21 96 H 97 02/12/19 19:16 93 H 96 02/12/19 19:11 98 H 97 02/12/19 19:07 36.7 C 104 H 18 115/75 02/12/19 19:06 96 H 98 02/12/19 19:01 97 H 97 02/12/19 19:00 18 02/12/19 18:56 91 H 96 02/12/19 18:51 102 H 128/70 97 02/12/19 18:46 100 H 98 02/12/19 18:41 95 H 97 02/12/19 18:36 99 H 122/73 97 02/12/19 18:31 100 H 96 02/12/19 18:30 18 02/12/19 18:26 103 H 97 02/12/19 18:22 103 H 124/70 02/12/19 18:21 97 H 97 02/12/19 18:16 97 H 98 02/12/19 18:11 107 H 97 02/12/19 18:06 106 H 118/72 97 02/12/19 18:01 106 H 97 02/12/19 18:00 18 02/12/19 17:56 110 H 96 02/12/19 17:51 111 H 121/68 96 02/12/19 17:46 113 H 96 02/12/19 17:45 115 H 123/72 02/12/19 17:41 107 H 127/76 96 02/12/19 17:37 110 H 94 02/12/19 17:36 104 H 95 02/12/19 17:35 102 H 130/71 02/12/19 17:31 101 H 95 02/12/19 17:30 105 H 18 127/71 02/12/19 17:26 107 H 130/62 96 02/12/19 17:21 107 H 96 02/12/19 17:20 18 02/12/19 17:19 114 H 126/73 02/12/19 17:16 108 H 97 02/12/19 17:15 18 02/12/19 17:14 110 H 127/64 02/12/19 17:11 111 H 131/66 97 02/12/19 17:10 18 02/12/19 17:09 110 H 139/65 02/12/19 17:07 114 H 156/125 H 02/12/19 17:06 109 H 98 02/12/19 17:05 118 H 135/92 02/12/19 17:02 104 H 149/75 H 02/12/19 17:01 104 H 98 02/12/19 16:56 105 H 98 02/12/19 16:52 105 H 168/93 H 02/12/19 16:51 102 H 98 02/12/19 16:46 100 H 97 02/12/19 16:41 95 H 98 02/12/19 15:23 106 H 120/69 02/12/19 15:16 37.0 C 18 02/12/19 14:30 36.9 C 18 02/12/19 14:23 103 H 122/74 02/12/19 13:00 102 H 125/74
[2019-02-13] MEDS: fentaNYL 2MCG/ML ROPIV 1.25MG/ML 100 ML BAG EPI PRN ×2 (01:30→08:57)
--- NOTE | 2019-02-13 04:12 | Labor Progress Brief Note ---
Date of Service February 13, 2019 Subjective Comfortable with epidural Assessment & Plan (1) Term : IOL in progress, pit @ 20 and toco Q2 but no cervical change since last check. IUPC placed, to titrateto MVU 200-250. Present on Admission?: Yes Physical Exam Physical Exam: FHT 150 mod zaki +acc -dec [place] Q2m Cvx unchanged Clear LOF continues IUPC placed without difficulty Results & Data Vital Signs (Past 12 Hours) Vital Signs Temp Pulse Resp BP Pulse Ox 02/13/19 04:06 101 H 161/95 H 96 02/13/19 04:01 100 H 96 02/13/19 03:56 96 H 96 02/13/19 03:52 96 H 127/72 02/13/19 03:51 98 H 96 02/13/19 03:46 98 H 96 02/13/19 03:41 97 H 95 02/13/19 03:36 96 H 137/83 97 02/13/19 03:31 96 H 96 02/13/19 03:26 87 95 02/13/19 03:22 89 139/90 02/13/19 03:21 92 H 95 02/13/19 03:16 91 H 95 02/13/19 03:14 92 H 94 02/13/19 03:11 92 H 95 02/13/19 03:06 95 H 142/88 H 96 02/13/19 03:01 95 H 96 02/13/19 02:56 96 H 96 02/13/19 02:51 91 H 137/86 96 02/13/19 02:46 93 H 96 02/13/19 02:41 86 96 02/13/19 02:37 85 145/85 H 02/13/19 02:36 87 96 02/13/19 02:32 95 H 94 02/13/19 02:31 90 95 02/13/19 02:26 84 96 02/13/19 02:22 85 149/86 H 02/13/19 02:21 82 96 02/13/19 02:16 80 96 02/13/19 02:11 87 95 02/13/19 02:06 86 148/85 H 94 02/13/19 02:03 87 94 02/13/19 02:01 88 95 02/13/19 01:56 88 95 02/13/19 01:51 92 H 143/85 H 96 02/13/19 01:46 90 95 02/13/19 01:41 89 96 02/13/19 01:36 90 141/87 H 97 02/13/19 01:31 90 95 02/13/19 01:27 92 H 138/85 02/13/19 01:26 105 H 96 02/13/19 01:21 103 H 95 02/13/19 01:16 103 H 97 02/13/19 01:11 95 H 95 02/13/19 01:06 98 H 128/70 95 02/13/19 01:01 98 H 95 02/13/19 01:00 37.1 C 18 02/13/19 00:59 96 H 94 02/13/19 00:56 98 H 95 02/13/19 00:54 100 H 94 02/13/19 00:51 92 H 118/67 95 02/13/19 00:49 103 H 94 02/13/19 00:46 99 H 95 02/13/19 00:44 100 H 94 02/13/19 00:41 97 H 95 02/13/19 00:39 98 H 94 02/13/19 00:36 99 H 120/67 94 02/13/19 00:33 102 H 94 02/13/19 00:31 102 H 95 02/13/19 00:27 104 H 94 02/13/19 00:26 104 H 94 02/13/19 00:22 103 H 94 02/13/19 00:21 101 H 118/65 95 02/13/19 00:17 100 H 94 02/13/19 00:16 101 H 94 02/13/19 00:11 113 H 96 02/13/19 00:07 106 H 94 02/13/19 00:06 102 H 115/62 95 02/13/19 00:01 106 H 95 02/12/19 23:57 100 H 94 02/12/19 23:56 101 H 95 02/12/19 23:51 101 H 120/68 96 02/12/19 23:47 99 H 94 02/12/19 23:46 97 H 95 02/12/19 23:41 96 H 95 02/12/19 23:36 105 H 129/74 96 02/12/19 23:31 105 H 96 02/12/19 23:26 87 95 02/12/19 23:21 87 134/80 95 02/12/19 23:16 88 96 02/12/19 23:11 93 H 95 02/12/19 23:08 92 H 94 02/12/19 23:06 92 H 142/83 H 96 02/12/19 23:01 87 97 02/12/19 23:00 36.7 C 18 02/12/19 22:56 88 96 02/12/19 22:51 90 154/91 H 97 02/12/19 22:46 88 96 02/12/19 22:41 91 H 96 02/12/19 22:36 91 H 147/88 H 97 02/12/19 22:31 92 H 97 02/12/19 22:26 88 98 02/12/19 22:21 107 H 149/88 H 98 02/12/19 22:16 95 H 97 02/12/19 22:11 95 H 96 02/12/19 22:06 113 H 142/82 H 98 02/12/19 22:01 99 H 95 02/12/19 21:56 98 H 95 02/12/19 21:55 104 H 94 02/12/19 21:51 106 H 139/82 96 02/12/19 21:46 95 H 95 02/12/19 21:43 99 H 94 02/12/19 21:41 107 H 96 02/12/19 21:38 102 H 94 02/12/19 21:36 96 H 137/81 95 02/12/19 21:31 103 H 97 02/12/19 21:26 100 H 96 02/12/19 21:22 95 H 134/83 02/12/19 21:21 98 H 96 02/12/19 21:16 92 H 97 02/12/19 21:11 96 H 96 02/12/19 21:06 89 128/63 96 02/12/19 21:01 105 H 96 02/12/19 20:57 36.6 C 18 02/12/19 20:56 99 H 96 02/12/19 20:54 102 H 94 02/12/19 20:51 94 H 130/83 96 02/12/19 20:46 85 98 02/12/19 20:41 91 H 98 02/12/19 20:37 90 132/79 02/12/19 20:36 93 H 97 02/12/19 20:31 99 H 97 02/12/19 20:26 95 H 96 02/12/19 20:21 94 H 135/77 97 02/12/19 20:16 95 H 96 02/12/19 20:11 91 H 96 02/12/19 20:06 94 H 133/78 96 02/12/19 20:01 94 H 96 02/12/19 19:56 85 97 02/12/19 19:51 96 H 125/75 97 02/12/19 19:46 92 H 97 02/12/19 19:41 93 H 98 02/12/19 19:36 89 129/75 96 02/12/19 19:31 94 H 96 02/12/19 19:26 100 H 96 02/12/19 19:22 93 H 129/77 02/12/19 19:21 96 H 97 02/12/19 19:16 93 H 96 02/12/19 19:11 98 H 97 02/12/19 19:07 36.7 C 104 H 18 115/75 02/12/19 19:06 96 H 98 02/12/19 19:01 97 H 97 02/12/19 19:00 18 02/12/19 18:56 91 H 96 02/12/19 18:51 102 H 128/70 97 02/12/19 18:46 100 H 98 02/12/19 18:41 95 H 97 02/12/19 18:36 99 H 122/73 97 02/12/19 18:31 100 H 96 02/12/19 18:30 18 02/12/19 18:26 103 H 97 02/12/19 18:22 103 H 124/70 02/12/19 18:21 97 H 97 02/12/19 18:16 97 H 98 02/12/19 18:11 107 H 97 02/12/19 18:06 106 H 118/72 97 02/12/19 18:01 106 H 97 02/12/19 18:00 18 02/12/19 17:56 110 H 96 02/12/19 17:51 111 H 121/68 96 02/12/19 17:46 113 H 96 02/12/19 17:45 115 H 123/72 02/12/19 17:41 107 H 127/76 96 02/12/19 17:37 110 H 94 02/12/19 17:36 104 H 95 02/12/19 17:35 102 H 130/71 02/12/19 17:31 101 H 95 02/12/19 17:30 105 H 18 127/71 02/12/19 17:26 107 H 130/62 96 02/12/19 17:21 107 H 96 02/12/19 17:20 18 02/12/19 17:19 114 H 126/73 02/12/19 17:16 108 H 97 02/12/19 17:15 18 02/12/19 17:14 110 H 127/64 02/12/19 17:11 111 H 131/66 97 02/12/19 17:10 18 02/12/19 17:09 110 H 139/65 02/12/19 17:07 114 H 156/125 H 02/12/19 17:06 109 H 98 02/12/19 17:05 118 H 135/92 02/12/19 17:02 104 H 149/75 H 02/12/19 17:01 104 H 98 02/12/19 16:56 105 H 98 02/12/19 16:52 105 H 168/93 H 02/12/19 16:51 102 H 98 02/12/19 16:46 100 H 97 02/12/19 16:41 95 H 98
[2019-02-13] MEDS: LACTATED RINGER'S 1,000 ML IV PRN ×2 (05:56→13:53)
[2019-02-13] MEDS ORDERED: CITRIC ACID/SODIUM CITRATE 15 ML UDC PO SCH (06:00)
--- NOTE | 2019-02-13 06:31 | Labor Progress Brief Note ---
Date of Service February 13, 2019 Subjective Patient feeling some increased pressure. Has epidural. Assessment & Plan (1) Term : IOL with pitocin, cervical change occurring. Goal MVU 200-250 not reached currently. Continue current mgmt Present on Admission?: Yes Physical Exam Physical Exam: FHT Cat 1 [place] Q2m but MVU remain below goal Pit @ 22 Cvx with change to 5cm and 75% effaced but remains -2 station at best. Results & Data Vital Signs (Past 12 Hours) Vital Signs Temp Pulse Resp BP Pulse Ox 02/13/19 06:26 86 96 02/13/19 06:22 86 165/94 H 02/13/19 06:21 95 H 96 02/13/19 06:16 106 H 96 02/13/19 06:11 96 H 96 02/13/19 06:07 93 H 129/74 02/13/19 06:06 94 H 96 02/13/19 06:01 100 H 96 02/13/19 05:57 90 94 02/13/19 05:56 93 H 95 02/13/19 05:51 99 H 120/74 96 02/13/19 05:46 96 H 96 02/13/19 05:41 100 H 95 02/13/19 05:37 98 H 118/76 02/13/19 05:36 96 H 95 02/13/19 05:35 99 H 94 02/13/19 05:31 99 H 94 02/13/19 05:29 101 H 94 02/13/19 05:26 109 H 96 02/13/19 05:21 108 H 121/63 98 02/13/19 05:16 94 H 95 02/13/19 05:11 94 H 95 02/13/19 05:07 95 H 94 02/13/19 05:06 95 H 121/70 95 02/13/19 05:02 93 H 94 02/13/19 05:01 94 H 94 02/13/19 05:00 36.4 C L 18 02/13/19 04:57 93 H 94 02/13/19 04:56 94 H 94 02/13/19 04:52 100 H 119/61 94 02/13/19 04:51 93 H 95 02/13/19 04:46 93 H 94 02/13/19 04:45 95 H 94 02/13/19 04:41 94 H 94 02/13/19 04:38 95 H 94 02/13/19 04:37 96 H 115/66 02/13/19 04:36 93 H 95 02/13/19 04:31 97 H 95 02/13/19 04:26 99 H 95 02/13/19 04:25 97 H 94 02/13/19 04:21 98 H 117/74 95 02/13/19 04:17 97 H 94 02/13/19 04:16 98 H 96 02/13/19 04:12 96 H 94 02/13/19 04:11 91 H 95 02/13/19 04:06 101 H 161/95 H 96 02/13/19 04:01 100 H 96 02/13/19 03:56 96 H 96 02/13/19 03:52 96 H 127/72 02/13/19 03:51 98 H 96 02/13/19 03:46 98 H 96 02/13/19 03:41 97 H 95 02/13/19 03:36 96 H 137/83 97 02/13/19 03:31 96 H 96 02/13/19 03:26 87 95 02/13/19 03:22 89 139/90 02/13/19 03:21 92 H 95 02/13/19 03:16 91 H 95 02/13/19 03:14 92 H 94 02/13/19 03:11 92 H 95 02/13/19 03:06 95 H 142/88 H 96 02/13/19 03:01 95 H 96 02/13/19 03:00 36.7 C 18 02/13/19 02:56 96 H 96 02/13/19 02:51 91 H 137/86 96 02/13/19 02:46 93 H 96 02/13/19 02:41 86 96 02/13/19 02:37 85 145/85 H 02/13/19 02:36 87 96 02/13/19 02:32 95 H 94 02/13/19 02:31 90 95 02/13/19 02:26 84 96 02/13/19 02:22 85 149/86 H 02/13/19 02:21 82 96 02/13/19 02:16 80 96 02/13/19 02:11 87 95 02/13/19 02:06 86 148/85 H 94 02/13/19 02:03 87 94 02/13/19 02:01 88 95 02/13/19 01:56 88 95 02/13/19 01:51 92 H 143/85 H 96 02/13/19 01:46 90 95 02/13/19 01:41 89 96 02/13/19 01:36 90 141/87 H 97 02/13/19 01:31 90 95 02/13/19 01:27 92 H 138/85 02/13/19 01:26 105 H 96 02/13/19 01:21 103 H 95 02/13/19 01:16 103 H 97 02/13/19 01:11 95 H 95 02/13/19 01:06 98 H 128/70 95 02/13/19 01:01 98 H 95 02/13/19 01:00 37.1 C 18 02/13/19 00:59 96 H 94 02/13/19 00:56 98 H 95 02/13/19 00:54 100 H 94 02/13/19 00:51 92 H 118/67 95 02/13/19 00:49 103 H 94 02/13/19 00:46 99 H 95 02/13/19 00:44 100 H 94 02/13/19 00:41 97 H 95 02/13/19 00:39 98 H 94 02/13/19 00:36 99 H 120/67 94 02/13/19 00:33 102 H 94 02/13/19 00:31 102 H 95 02/13/19 00:27 104 H 94 02/13/19 00:26 104 H 94 02/13/19 00:22 103 H 94 02/13/19 00:21 101 H 118/65 95 02/13/19 00:17 100 H 94 02/13/19 00:16 101 H 94 02/13/19 00:11 113 H 96 02/13/19 00:07 106 H 94 02/13/19 00:06 102 H 115/62 95 02/13/19 00:01 106 H 95 02/12/19 23:57 100 H 94 02/12/19 23:56 101 H 95 02/12/19 23:51 101 H 120/68 96 02/12/19 23:47 99 H 94 02/12/19 23:46 97 H 95 02/12/19 23:41 96 H 95 02/12/19 23:36 105 H 129/74 96 02/12/19 23:31 105 H 96 02/12/19 23:26 87 95 02/12/19 23:21 87 134/80 95 02/12/19 23:16 88 96 02/12/19 23:11 93 H 95 02/12/19 23:08 92 H 94 02/12/19 23:06 92 H 142/83 H 96 02/12/19 23:01 87 97 02/12/19 23:00 36.7 C 18 02/12/19 22:56 88 96 02/12/19 22:51 90 154/91 H 97 02/12/19 22:46 88 96 02/12/19 22:41 91 H 96 02/12/19 22:36 91 H 147/88 H 97 02/12/19 22:31 92 H 97 02/12/19 22:26 88 98 02/12/19 22:21 107 H 149/88 H 98 02/12/19 22:16 95 H 97 02/12/19 22:11 95 H 96 02/12/19 22:06 113 H 142/82 H 98 02/12/19 22:01 99 H 95 02/12/19 21:56 98 H 95 02/12/19 21:55 104 H 94 02/12/19 21:51 106 H 139/82 96 02/12/19 21:46 95 H 95 02/12/19 21:43 99 H 94 02/12/19 21:41 107 H 96 02/12/19 21:38 102 H 94 02/12/19 21:36 96 H 137/81 95 02/12/19 21:31 103 H 97 02/12/19 21:26 100 H 96 02/12/19 21:22 95 H 134/83 02/12/19 21:21 98 H 96 02/12/19 21:16 92 H 97 02/12/19 21:11 96 H 96 02/12/19 21:06 89 128/63 96 02/12/19 21:01 105 H 96 02/12/19 20:57 36.6 C 18 02/12/19 20:56 99 H 96 02/12/19 20:54 102 H 94 02/12/19 20:51 94 H 130/83 96 06/06/19 20:46 85 98 02/12/19 20:41 91 H 98 02/12/19 20:37 90 132/79 02/12/19 20:36 93 H 97 02/12/19 20:31 99 H 97 02/12/19 20:26 95 H 96 02/12/19 20:21 94 H 135/77 97 02/12/19 20:16 95 H 96 02/12/19 20:11 91 H 96 02/12/19 20:06 94 H 133/78 96 02/12/19 20:01 94 H 96 02/12/19 19:56 85 97 02/12/19 19:51 96 H 125/75 97 02/12/19 19:46 92 H 97 02/12/19 19:41 93 H 98 02/12/19 19:36 89 129/75 96 02/12/19 19:31 94 H 96 02/12/19 19:26 100 H 96 02/12/19 19:22 93 H 129/77 02/12/19 19:21 96 H 97 02/12/19 19:16 93 H 96 02/12/19 19:11 98 H 97 02/12/19 19:07 36.7 C 104 H 18 115/75 02/12/19 19:06 96 H 98 02/12/19 19:01 97 H 97 02/12/19 19:00 18 02/12/19 18:56 91 H 96 02/12/19 18:51 102 H 128/70 97 02/12/19 18:46 100 H 98 02/12/19 18:41 95 H 97 02/12/19 18:36 99 H 122/73 97 02/12/19 18:31 100 H 96
--- NOTE | 2019-02-13 09:47 | Communication Note ---
Date of Service: February 13, 2019 Dysfunctional contraction pattern. Not adequate. Just recently halfed pit and going back up. fetus category one.
[2019-02-13] MEDS: OXYTOCIN 30 UNITS/500 ML BAG IV PRN (13:51)
[2019-02-13] MEDS ORDERED: LACTATED RINGER'S 1,000 ML IV SCH (14:45)
[2019-02-13] MEDS ORDERED: MoRPHine SULFATE PF 1 MG/ML 10 ML AMP/VIAL ONE (14:48)
[2019-02-13] MEDS ORDERED: OXYTOCIN 10 UNITS/ML VIAL ONE (14:48)
[2019-02-13] MEDS ORDERED: PHENYLEPHRINE 100MCG/ML 5ML SYR ONE (14:48)
--- NOTE | 2019-02-13 14:49 | Labor Progress Brief Note ---
Date of Service February 13, 2019 Subjective comfortable with epidural Assessment & Plan (1) Term : Patient has been ruptured for 24+hours, has not had any change in the 7 hours I have been here and many hours prior. Afebrile. fetus category one. Discussed options at this point. Can continue to go up on the pitocin and try to get an adequate contraction pattern. Not sure we are going to be able to do that. Therefore, have to wonde r why. Fetus has not descended at all per multiple exams. May be cpd. fetus category one. However, baby still reassuring, afebrile and could continue to push pitocin. If we do get her complete, no guarantee that baby will come through pelvis. If she pushes for several hours and then have to do c/s a more difficult surgery with more risk. Also discussed that the baby may not tolerate pitocin. Risk of continued pit would be water intoxication and increased risk of pph and infection. Discussed could proceed with c/s at this time. r/b/se of c/s reveiwed. Discussed hospital course. Questions answered. She wishes to proceed with c/s at this time. Consent reviewed and sigend. Physical Exam Genitourinary: cx--unchanged in last 7 hours, /-2 to -3 toco--q2min, pit at 28, unable to obtain adequate contraction pattern Results & Data Vital Signs (Past 12 Hours) Vital Signs Temp Pulse Resp BP Pulse Ox 02/13/19 14:41 90 99 02/13/19 14:36 85 128/76 98 02/13/19 14:31 90 98 02/13/19 14:26 84 98 02/13/19 14:21 87 98 02/13/19 14:16 84 98 02/13/19 14:11 88 98 02/13/19 14:07 83 136/79 02/13/19 14:06 90 99 02/13/19 14:01 84 97 02/13/19 13:59 20 02/13/19 13:56 92 H 98 02/13/19 13:51 87 97 02/13/19 13:46 84 99 02/13/19 13:41 99 H 98 02/13/19 13:37 91 H 130/78 02/13/19 13:36 87 98 02/13/19 13:31 90 97 02/13/19 13:26 89 99 02/13/19 13:21 94 H 97 02/13/19 13:16 89 97 02/13/19 13:11 87 97 02/13/19 13:07 89 131/68 02/13/19 13:06 92 H 97 02/13/19 13:05 36.9 C 20 02/13/19 13:01 88 96 02/13/19 12:56 93 H 97 02/13/19 12:51 97 H 98 02/13/19 12:46 87 98 02/13/19 12:41 82 97 02/13/19 12:37 82 138/91 02/13/19 12:36 84 97 02/13/19 12:31 84 97 02/13/19 12:26 88 97 02/13/19 12:21 83 97 02/13/19 12:16 85 98 02/13/19 12:11 85 97 02/13/19 12:06 87 141/86 H 97 02/13/19 12:01 86 97 02/13/19 11:59 20 02/13/19 11:56 80 98 02/13/19 11:51 83 97 02/13/19 11:46 80 98 02/13/19 11:41 84 97 02/13/19 11:36 95 H 98 02/13/19 11:31 92 H 98 02/13/19 11:30 18 02/13/19 11:26 94 H 98 02/13/19 11:21 83 95 02/13/19 11:20 77 94 02/13/19 11:16 36.9 C 87 97 02/13/19 11:11 85 96 02/13/19 11:08 90 130/75 02/13/19 11:06 87 96 02/13/19 11:01 86 96 02/13/19 11:00 20 02/13/19 10:56 85 96 02/13/19 10:51 86 96 02/13/19 10:46 85 96 02/13/19 10:41 94 H 96 02/13/19 10:36 95 H 135/75 96 02/13/19 10:31 97 H 98 02/13/19 10:30 20 02/13/19 10:26 91 H 97 02/13/19 10:21 84 96 02/13/19 10:16 83 96 02/13/19 10:11 83 96 02/13/19 10:07 90 151/95 H 02/13/19 10:06 82 96 02/13/19 10:01 82 97 02/13/19 10:00 20 02/13/19 09:56 90 96 02/13/19 09:51 80 96 02/13/19 09:46 79 96 02/13/19 09:41 82 96 02/13/19 09:37 79 147/85 H 02/13/19 09:36 80 96 02/13/19 09:31 80 96 02/13/19 09:30 20 02/13/19 09:26 81 96 02/13/19 09:21 79 96 02/13/19 09:16 79 97 02/13/19 09:11 84 97 02/13/19 09:07 85 140/83 02/13/19 09:06 87 98 02/13/19 09:01 103 H 96 02/13/19 09:00 37.3 C 20 02/13/19 08:56 92 H 96 02/13/19 08:51 90 94 02/13/19 08:46 89 96 02/13/19 08:41 92 H 95 02/13/19 08:36 87 122/74 96 02/13/19 08:31 91 H 95 02/13/19 08:30 20 02/13/19 08:26 90 95 02/13/19 08:21 86 95 02/13/19 08:16 91 H 95 02/13/19 08:11 90 95 02/13/19 08:07 86 124/78 02/13/19 08:06 88 94 02/13/19 08:05 89 94 02/13/19 08:01 93 H 96 02/13/19 08:00 37.0 C 20 02/13/19 07:56 92 H 95 02/13/19 07:51 89 95 02/13/19 07:46 89 95 02/13/19 07:41 88 97 02/13/19 07:37 36.7 C 20 02/13/19 07:36 88 97 02/13/19 07:31 88 97 02/13/19 07:26 95 H 97 02/13/19 07:22 103 H 131/79 02/13/19 07:21 92 H 97 02/13/19 07:16 81 97 02/13/19 07:11 96 H 98 02/13/19 07:06 82 168/82 H 96 02/13/19 07:01 86 96 02/13/19 07:00 20 02/13/19 06:56 90 96 02/13/19 06:52 88 168/94 H 02/13/19 06:51 94 H 97 02/13/19 06:46 86 96 02/13/19 06:41 83 96 02/13/19 06:36 87 147/99 H 96 02/13/19 06:31 89 97 02/13/19 06:26 86 96 02/13/19 06:22 86 165/94 H 02/13/19 06:21 95 H 96 02/13/19 06:16 106 H 96 02/13/19 06:11 96 H 96 02/13/19 06:07 93 H 129/74 02/13/19 06:06 94 H 96 02/13/19 06:01 100 H 96 02/13/19 05:57 90 94 02/13/19 05:56 93 H 95 02/13/19 05:51 99 H 120/74 96 02/13/19 05:46 96 H 96 02/13/19 05:41 100 H 95 02/13/19 05:37 98 H 118/76 02/13/19 05:36 96 H 95 02/13/19 05:35 99 H 94 02/13/19 05:31 99 H 94 02/13/19 05:29 101 H 94 02/13/19 05:26 109 H 96 02/13/19 05:21 108 H 121/63 98 02/13/19 05:16 94 H 95 02/13/19 05:11 94 H 95 02/13/19 05:07 95 H 94 02/13/19 05:06 95 H 121/70 95 02/13/19 05:02 93 H 94 02/13/19 05:01 94 H 94 02/13/19 05:00 36.4 C L 18 02/13/19 04:57 93 H 94 02/13/19 04:56 94 H 94 02/13/19 04:52 100 H 119/61 94 02/13/19 04:51 93 H 95 02/13/19 04:46 93 H 94 02/13/19 04:45 95 H 94 02/13/19 04:41 94 H 94 02/13/19 04:38 95 H 94 02/13/19 04:37 96 H 115/66 02/13/19 04:36 93 H 95 02/13/19 04:31 97 H 95 02/13/19 04:26 99 H 95 02/13/19 04:25 97 H 94 02/13/19 04:21 98 H 117/74 95 02/13/19 04:17 97 H 94 02/13/19 04:16 98 H 96 02/13/19 04:12 96 H 94 02/13/19 04:11 91 H 95 02/13/19 04:06 101 H 161/95 H 96 02/13/19 04:01 100 H 96 02/13/19 03:56 96 H 96 02/13/19 03:52 96 H 127/72 02/13/19 03:51 98 H 96 02/13/19 03:46 98 H 96 02/13/19 03:41 97 H 95 02/13/19 03:36 96 H 137/83 97 02/13/19 03:31 96 H 96 02/13/19 03:26 87 95 02/13/19 03:22 89 139/90 02/13/19 03:21 92 H 95 02/13/19 03:16 91 H 95 02/13/19 03:14 92 H 94 02/13/19 03:11 92 H 95 02/13/19 03:06 95 H 142/88 H 96 02/13/19 03:01 95 H 96 02/13/19 03:00 36.7 C 18 02/13/19 02:56 96 H 96 02/13/19 02:51 91 H 137/86 96 02/13/19 02:46 93 H 96
[2019-02-13] MEDS ORDERED: CEFAZOLIN 3000MG 65 ML IV SCH (15:00)
[2019-02-13] MEDS ORDERED: CITRIC ACID/SODIUM CITRATE 15 ML UDC ONE (15:02)
[2019-02-13] MEDS ORDERED: CEFAZOLIN 250 MG/ML 1 GM VIAL ONE (15:15)
[2019-02-13] MEDS ORDERED: BUPIVACAINE 0.5 % 5 MG/1 ML MPF 30ML VIAL INFIL ONE (15:44)
[2019-02-13] MEDS ORDERED: ONDANSETRON INJ 2 MG/ML 2 ML VIAL ONE (16:01)
[2019-02-13] MEDS ORDERED: PROMETHAZINE HCL 12.5 MG in SODIUM CHLORIDE 0.9% 50 ML IV PRN (16:06)
--- NOTE | 2019-02-13 16:39 | Anesthesia Procedure Note ---
Date of Service February 13, 2019 Anesthesia Post Epidural Note Vital Signs Vital Signs: Temp Pulse Resp BP Pulse Ox 36.9 C 153 H 20 158/65 H 96 02/13/19 13:05 02/13/19 16:33 02/13/19 13:59 02/13/19 16:29 02/13/19 16:33 Pain Intensity Bilateral Abdomen: Pain Intensity: 1 Notes Mental Status: alert / awake / arousable Patient Amnestic to Procedure: No Nausea / Vomiting: improving with treatment Pain: adequately controlled Airway Patency, RR, SpO2: stable & adequate BP & HR: stable & adequate Hydration State: stable & adequate Neuraxial Anesthesia: was administered and sensory block is resolving Anesthetic Complications: no major complications apparent and Pt Satisfied with anesthetic care Epidural: Removed without complications and With tip intact
--- NOTE | 2019-02-13 16:40 | Anesthesiology Progress Note ---
Date of Service February 13, 2019 Anesthesia Post Procedure Vital Signs Vital Signs: Temp Pulse Resp BP Pulse Ox 02/13/19 16:38 136 H 98 02/13/19 16:33 153 H 96 02/13/19 16:29 116 H 158/65 H 02/13/19 16:28 120 H 99 02/13/19 16:23 122 H 98 02/13/19 15:11 92 H 97 02/13/19 15:06 102 H 143/91 H 97 02/13/19 15:01 91 H 98 02/13/19 14:56 87 97 02/13/19 14:51 88 97 02/13/19 14:46 86 98 02/13/19 14:41 90 99 02/13/19 14:36 85 128/76 98 02/13/19 14:31 90 98 02/13/19 14:26 84 98 02/13/19 14:21 87 98 02/13/19 14:16 84 98 02/13/19 14:11 88 98 02/13/19 14:07 83 136/79 02/13/19 14:06 90 99 02/13/19 14:01 84 97 02/13/19 13:59 20 02/13/19 13:56 92 H 98 02/13/19 13:51 87 97 02/13/19 13:46 84 99 02/13/19 13:41 99 H 98 02/13/19 13:37 91 H 130/78 02/13/19 13:36 87 98 02/13/19 13:31 90 97 02/13/19 13:26 89 99 02/13/19 13:21 94 H 97 02/13/19 13:16 89 97 02/13/19 13:11 87 97 02/13/19 13:07 89 131/68 02/13/19 13:06 92 H 97 02/13/19 13:05 36.9 C 20 02/13/19 13:01 88 96 02/13/19 12:56 93 H 97 02/13/19 12:51 97 H 98 02/13/19 12:46 87 98 02/13/19 12:41 82 97 02/13/19 12:37 82 138/91 02/13/19 12:36 84 97 02/13/19 12:31 84 97 02/13/19 12:26 88 97 02/13/19 12:21 83 97 02/13/19 12:16 85 98 02/13/19 12:11 85 97 02/13/19 12:06 87 141/86 H 97 02/13/19 12:01 86 97 02/13/19 11:59 20 02/13/19 11:56 80 98 02/13/19 11:51 83 97 02/13/19 11:46 80 98 02/13/19 11:41 84 97 02/13/19 11:36 95 H 98 02/13/19 11:31 92 H 98 02/13/19 11:30 18 02/13/19 11:26 94 H 98 02/13/19 11:21 83 95 02/13/19 11:20 77 94 02/13/19 11:16 36.9 C 87 97 02/13/19 11:11 85 96 02/13/19 11:08 90 130/75 02/13/19 11:06 87 96 02/13/19 11:01 86 96 02/13/19 11:00 20 02/13/19 10:56 85 96 02/13/19 10:51 86 96 02/13/19 10:46 85 96 02/13/19 10:41 94 H 96 02/13/19 10:36 95 H 135/75 96 02/13/19 10:31 97 H 98 02/13/19 10:30 20 02/13/19 10:26 91 H 97 02/13/19 10:21 84 96 02/13/19 10:16 83 96 02/13/19 10:11 83 96 02/13/19 10:07 90 151/95 H 02/13/19 10:06 82 96 02/13/19 10:01 82 97 02/13/19 10:00 20 02/13/19 09:56 90 96 02/13/19 09:51 80 96 02/13/19 09:46 79 96 02/13/19 09:41 82 96 02/13/19 09:37 79 147/85 H 02/13/19 09:36 80 96 02/13/19 09:31 80 96 02/13/19 09:30 20 02/13/19 09:26 81 96 02/13/19 09:21 79 96 02/13/19 09:16 79 97 02/13/19 09:11 84 97 02/13/19 09:07 85 140/83 02/13/19 09:06 87 98 02/13/19 09:01 103 H 96 02/13/19 09:00 37.3 C 20 02/13/19 08:56 92 H 96 02/13/19 08:51 90 94 02/13/19 08:46 89 96 02/13/19 08:41 92 H 95 02/13/19 08:36 87 122/74 96 02/13/19 08:31 91 H 95 02/13/19 08:30 20 02/13/19 08:26 90 95 02/13/19 08:21 86 95 02/13/19 08:16 91 H 95 02/13/19 08:11 90 95 02/13/19 08:07 86 124/78 02/13/19 08:06 88 94 02/13/19 08:05 89 94 02/13/19 08:01 93 H 96 02/13/19 08:00 37.0 C 20 02/13/19 07:56 92 H 95 02/13/19 07:51 89 95 02/13/19 07:46 89 95 02/13/19 07:41 88 97 02/13/19 07:37 36.7 C 20 02/13/19 07:36 88 97 02/13/19 07:31 88 97 02/13/19 07:26 95 H 97 02/13/19 07:22 103 H 131/79 02/13/19 07:21 92 H 97 02/13/19 07:16 81 97 02/13/19 07:11 96 H 98 02/13/19 07:06 82 168/82 H 96 02/13/19 07:01 86 96 02/13/19 07:00 20 02/13/19 06:56 90 96 02/13/19 06:52 88 168/94 H 02/13/19 06:51 94 H 97 02/13/19 06:46 86 96 02/13/19 06:41 83 96 02/13/19 06:36 87 147/99 H 96 02/13/19 06:31 89 97 02/13/19 06:26 86 96 02/13/19 06:22 86 165/94 H 02/13/19 06:21 95 H 96 02/13/19 06:16 106 H 96 02/13/19 06:11 96 H 96 02/13/19 06:07 93 H 129/74 02/13/19 06:06 94 H 96 02/13/19 06:01 100 H 96 02/13/19 05:57 90 94 02/13/19 05:56 93 H 95 02/13/19 05:51 99 H 120/74 96 02/13/19 05:46 96 H 96 02/13/19 05:41 100 H 95 02/13/19 05:37 98 H 118/76 02/13/19 05:36 96 H 95 02/13/19 05:35 99 H 94 02/13/19 05:31 99 H 94 02/13/19 05:29 101 H 94 02/13/19 05:26 109 H 96 02/13/19 05:21 108 H 121/63 98 02/13/19 05:16 94 H 95 02/13/19 05:11 94 H 95 02/13/19 05:07 95 H 94 02/13/19 05:06 95 H 121/70 95 02/13/19 05:02 93 H 94 02/13/19 05:01 94 H 94 02/13/19 05:00 36.4 C L 18 02/13/19 04:57 93 H 94 02/13/19 04:56 94 H 94 02/13/19 04:52 100 H 119/61 94 02/13/19 04:51 93 H 95 02/13/19 04:46 93 H 94 02/13/19 04:45 95 H 94 02/13/19 04:41 94 H 94 02/13/19 04:38 95 H 94 02/13/19 04:37 96 H 115/66 02/13/19 04:36 93 H 95 02/13/19 04:31 97 H 95 02/13/19 04:26 99 H 95 02/13/19 04:25 97 H 94 02/13/19 04:21 98 H 117/74 95 02/13/19 04:17 97 H 94 02/13/19 04:16 98 H 96 02/13/19 04:12 96 H 94 02/13/19 04:11 91 H 95 02/13/19 04:06 101 H 161/95 H 96 02/13/19 04:01 100 H 96 02/13/19 03:56 96 H 96 02/13/19 03:52 96 H 127/72 02/13/19 03:51 98 H 96 02/13/19 03:46 98 H 96 02/13/19 03:41 97 H 95 02/13/19 03:36 96 H 137/83 97 02/13/19 03:31 96 H 96 02/13/19 03:26 87 95 02/13/19 03:22 89 139/90 02/13/19 03:21 92 H 95 02/13/19 03:16 91 H 95 02/13/19 03:14 92 H 94 02/13/19 03:11 92 H 95 02/13/19 03:06 95 H 142/88 H 96 02/13/19 03:01 95 H 96 02/13/19 03:00 36.7 C 18 02/13/19 02:56 96 H 96 02/13/19 02:51 91 H 137/86 96 02/13/19 02:46 93 H 96 02/13/19 02:41 86 96 02/13/19 02:37 85 145/85 H 02/13/19 02:36 87 96 02/13/19 02:32 95 H 94 02/13/19 02:31 90 95 02/13/19 02:26 84 96 02/13/19 02:22 85 149/86 H 02/13/19 02:21 82 96 02/13/19 02:16 80 96 02/13/19 02:11 87 95 02/13/19 02:06 86 148/85 H 94 02/13/19 02:03 87 94 02/13/19 02:01 88 95 02/13/19 01:56 88 95 02/13/19 01:51 92 H 143/85 H 96 02/13/19 01:46 90 95 02/13/19 01:41 89 96 02/13/19 01:36 90 141/87 H 97 02/13/19 01:31 90 95 02/13/19 01:27 92 H 138/85 02/13/19 01:26 105 H 96 02/13/19 01:21 103 H 95 02/13/19 01:16 103 H 97 02/13/19 01:11 95 H 95 02/13/19 01:06 98 H 128/70 95 02/13/19 01:01 98 H 95 02/13/19 01:00 37.1 C 18 02/13/19 00:59 96 H 94 02/13/19 00:56 98 H 95 02/13/19 00:54 100 H 94 02/13/19 00:51 92 H 118/67 95 02/13/19 00:49 103 H 94 02/13/19 00:46 99 H 95 02/13/19 00:44 100 H 94 02/13/19 00:41 97 H 95 02/13/19 00:39 98 H 94 02/13/19 00:36 99 H 120/67 94 02/13/19 00:33 102 H 94 02/13/19 00:31 102 H 95 02/13/19 00:27 104 H 94 02/13/19 00:26 104 H 94 02/13/19 00:22 103 H 94 02/13/19 00:21 101 H 118/65 95 02/13/19 00:17 100 H 94 02/13/19 00:16 101 H 94 02/13/19 00:11 113 H 96 02/13/19 00:07 106 H 94 02/13/19 00:06 102 H 115/62 95 02/13/19 00:01 106 H 95 02/12/19 23:57 100 H 94 02/12/19 23:56 101 H 95 02/12/19 23:51 101 H 120/68 96 02/12/19 23:47 99 H 94 02/12/19 23:46 97 H 95 02/12/19 23:41 96 H 95 02/12/19 23:36 105 H 129/74 96 02/12/19 23:31 105 H 96 02/12/19 23:26 87 95 02/12/19 23:21 87 134/80 95 02/12/19 23:16 88 96 02/12/19 23:11 93 H 95 02/12/19 23:08 92 H 94 02/12/19 23:06 92 H 142/83 H 96 02/12/19 23:01 87 97 02/12/19 23:00 36.7 C 18 02/12/19 22:56 88 96 02/12/19 22:51 90 154/91 H 97 02/12/19 22:46 88 96 02/12/19 22:41 91 H 96 02/12/19 22:36 91 H 147/88 H 97 02/12/19 22:31 92 H 97 02/12/19 22:26 88 98 02/12/19 22:21 107 H 149/88 H 98 02/12/19 22:16 95 H 97 02/12/19 22:11 95 H 96 02/12/19 22:06 113 H 142/82 H 98 02/12/19 22:01 99 H 95 02/12/19 21:56 98 H 95 02/12/19 21:55 104 H 94 02/12/19 21:51 106 H 139/82 96 02/12/19 21:46 95 H 95 02/12/19 21:43 99 H 94 02/12/19 21:41 107 H 96 02/12/19 21:38 102 H 94 02/12/19 21:36 96 H 137/81 95 02/12/19 21:31 103 H 97 02/12/19 21:26 100 H 96 02/12/19 21:22 95 H 134/83 02/12/19 21:21 98 H 96 02/12/19 21:16 92 H 97 02/12/19 21:11 96 H 96 02/12/19 21:06 89 128/63 96 02/12/19 21:01 105 H 96 02/12/19 20:57 36.6 C 18 02/12/19 20:56 99 H 96 02/12/19 20:54 102 H 94 02/12/19 20:51 94 H 130/83 96 02/12/19 20:46 85 98 02/12/19 20:41 91 H 98 02/12/19 20:37 90 132/79 02/12/19 20:36 93 H 97 02/12/19 20:31 99 H 97 02/12/19 20:26 95 H 96 02/12/19 20:21 94 H 135/77 97 02/12/19 20:16 95 H 96 02/12/19 20:11 91 H 96 02/12/19 20:06 94 H 133/78 96 02/12/19 20:01 94 H 96 02/12/19 19:56 85 97 02/12/19 19:51 96 H 125/75 97 02/12/19 19:46 92 H 97 02/12/19 19:41 93 H 98 02/12/19 19:36 89 129/75 96 02/12/19 19:31 94 H 96 02/12/19 19:26 100 H 96 02/12/19 19:22 93 H 129/77 02/12/19 19:21 96 H 97 02/12/19 19:16 93 H 96 02/12/19 19:11 98 H 97 02/12/19 19:07 36.7 C 104 H 18 115/75 02/12/19 19:06 96 H 98 02/12/19 19:01 97 H 97 02/12/19 19:00 18 02/12/19 18:56 91 H 96 02/12/19 18:51 102 H 128/70 97 02/12/19 18:46 100 H 98 02/12/19 18:41 95 H 97 02/12/19 18:36 99 H 122/73 97 02/12/19 18:31 100 H 96 02/12/19 18:30 18 02/12/19 18:26 103 H 97 02/12/19 18:22 103 H 124/70 02/12/19 18:21 97 H 97 02/12/19 18:16 97 H 98 02/12/19 18:11 107 H 97 02/12/19 18:06 106 H 118/72 97 02/12/19 18:01 106 H 97 02/12/19 18:00 18 02/12/19 17:56 110 H 96 02/12/19 17:51 111 H 121/68 96 02/12/19 17:46 113 H 96 02/12/19 17:45 115 H 123/72 02/12/19 17:41 107 H 127/76 96 02/12/19 17:37 110 H 94 02/12/19 17:36 104 H 95 02/12/19 17:35 102 H 130/71 02/12/19 17:31 101 H 95 02/12/19 17:30 105 H 18 127/71 02/12/19 17:26 107 H 130/62 96 02/12/19 17:21 107 H 96 02/12/19 17:20 18 02/12/19 17:19 114 H 126/73 02/12/19 17:16 108 H 97 02/12/19 17:15 18 02/12/19 17:14 110 H 127/64 02/12/19 17:11 111 H 131/66 97 02/12/19 17:10 18 02/12/19 17:09 110 H 139/65 02/12/19 17:07 114 H 156/125 H 02/12/19 17:06 109 H 98 02/12/19 17:05 118 H 135/92 02/12/19 17:02 104 H 149/75 H 02/12/19 17:01 104 H 98 02/12/19 16:56 105 H 98 02/12/19 16:52 105 H 168/93 H 02/12/19 16:51 102 H 98 02/12/19 16:46 100 H 97 02/12/19 16:41 95 H 98 Pain Intensity Bilateral Abdomen: Pain Intensity: 1 Transfer of Care Handoff Completed per policy Notes Mental Status: alert / awake / arousable Patient Amnestic to Procedure: No Nausea / Vomiting: improving with treatment Pain: adequately controlled Airway Patency, RR, SpO2: stable & adequate BP & HR: stable & adequate Hydration State: stable & adequate Neuraxial Anesthesia: was administered and sensory block is resolving Anesthetic Complications: no major complications apparent and Pt Satisfied with anesthetic care
[2019-02-13] MEDS ORDERED: CARBOPROST TROMETHAMINE 250 MCG/ML AMPUL IM ONE (17:08)
[2019-02-13] MEDS: fentaNYL citrate 100 MCG/2 ML VIAL IV PRN ×2 (17:12→17:46)
[2019-02-13] MEDS ORDERED: HYDROCORTISONE ACETATE 25 MG SUPP PR PRN (18:17)
[2019-02-13] MEDS ORDERED: DIPHTHERIA/TETANUS/PERTUSSIS 0.5 ML SYR/VIAL IM ONE (18:17)
[2019-02-13] MEDS ORDERED: DiphenhydrAMINE HCL 50 MG/ML VIAL IV PRN (18:17)
[2019-02-13] MEDS ORDERED: SUPERCREAM 0.870% 15 GM JAR EXT PRN (18:17)
[2019-02-13] MEDS ORDERED: BENZOCAINE 20% AER SPR 82.5 GM CAN EXT PRN (18:17)
[2019-02-13] MEDS ORDERED: OXYTOCIN 20 UNITS in LACTATED RINGER'S 1,000 ML IV SCH (18:17)
--- NOTE | 2019-02-13 18:53 | Communication Note ---
Date of Service: February 13, 2019 Aware of patient pressures and now has a temp to 38.3. Given the smell at the time of delivery, will treat with antibiotics. Will check labs.
[2019-02-13] MEDS: KETOROLAC 30 MG/ML VIAL IV PRN (18:59)
[2019-02-13 19:13] LABS: Hemoglobin 9.6 g/dL (12.0-16.0); Mean Corpuscular Hgb Conc 33.1 g/dL (32-36); Mean Corpuscular Volume 81.5 fL (80-100); Mean Platelet Volume 11.5 fL (7.4-10.4); Platelet Count 153 K/uL (130-400); RDW Coefficient of Variation 15.9 % (11.5-14.5); RDW Standard Deviation 46.7 fL (36.4-46.3); Red Blood Count 3.56 M/uL (4.2-5.4); White Blood Count 15.96 K/uL (4.8-10.8)
[2019-02-13 19:35] LABS: BUN Creatinine Ratio 17.4 (10-20); Calcium 8.3 mg/dl (8.5-10.1); Creatinine Clr Calc Pharmacy 155.1 ml/min; Est GFR (African American) 139.2; Est GFR (Non-African American) 120.1; Potassium 3.6 mmol/L (3.5-5.1)
[2019-02-13 19:36] LABS: Basophils # (auto) 0.01 K/uL (0-0.2); Basophils % (auto) 0.1 %; Immature Granulocytes # (auto) 0.05 K/uL (0.00-0.02); Immature Granulocytes % (auto) 0.3 %; Lymphocytes # (auto) 0.61 K/uL (1.2-3.4); Lymphocytes % (auto) 3.8 %; Monocytes # (auto) 0.67 K/uL (0.11-0.59); Monocytes % (auto) 4.2 %; Neutrophils # (auto) 14.62 K/uL (1.4-6.5); Neutrophils % (auto) 91.6 %
[2019-02-13 19:38] LABS: Albumin Globulin Ratio 0.5 (0.9-2); Bilirubin,Total 0.4 mg/dl (0.2-1); Globulin 3.8 gm/dl (2.5-4.0); Total Protein 5.8 gm/dl (6.4-8.2)
[2019-02-13] MEDS: CLINDAMYCIN 600 MG in DEXTROSE 5% 50 ML IV SCH (20:10)
[2019-02-13] MEDS ORDERED: GENTAMICIN CONSULT ACTIVE PRN (20:14)
--- NOTE | 2019-02-13 20:51 | Pharmacy Report ---
Pharmacy Abx Initial Consult - Date of Service February 13, 2019 - Pharmacy Dosing Scope Date of Consult: 02/13/19 Consultation requested by: Dr. Nelson Pharmacy is consulted to initiate Gentamicin IV dosing therapy, order appropriate labs and adjust drug dose/frequency. - Subjective The patient is a 28 year old F admitted on 02/12/19 07:24. - Objective Height: 5 ft 3 in Weight: 120.202 kg Vital Signs (Past 12hrs): Vital Signs Temp Pulse Resp BP Pulse Ox 02/13/19 18:48 114 H 98 02/13/19 18:46 109 H 157/93 H 02/13/19 18:43 110 H 96 02/13/19 18:40 38.3 C H 20 02/13/19 18:38 106 H 96 02/13/19 18:33 109 H 96 02/13/19 18:28 110 H 97 02/13/19 18:23 109 H 96 02/13/19 18:20 111 H 94 02/13/19 18:18 114 H 97 02/13/19 18:13 109 H 96 02/13/19 18:10 117 H 150/100 H 02/13/19 18:08 108 H 96 02/13/19 18:03 110 H 97 02/13/19 18:00 37.4 C 111 H 20 146/92 H 02/13/19 17:58 108 H 96 02/13/19 17:53 108 H 96 02/13/19 17:50 106 H 147/93 H 02/13/19 17:48 108 H 95 02/13/19 17:43 117 H 98 02/13/19 17:40 114 H 154/96 H 02/13/19 17:38 109 H 96 02/13/19 17:33 109 H 97 02/13/19 17:30 37.4 C 109 H 20 148/91 H 02/13/19 17:28 110 H 96 02/13/19 17:23 109 H 96 02/13/19 17:20 109 H 20 149/89 H 02/13/19 17:18 109 H 96 02/13/19 17:13 116 H 97 02/13/19 17:10 117 H 20 150/96 H 02/13/19 17:08 112 H 97 02/13/19 17:03 115 H 96 02/13/19 17:00 112 H 20 155/84 H 02/13/19 16:58 112 H 97 02/13/19 16:53 115 H 97 02/13/19 16:50 107 H 20 145/72 H 02/13/19 16:48 114 H 97 02/13/19 16:43 124 H 99 02/13/19 16:40 123 H 20 149/72 H 02/13/19 16:38 136 H 98 02/13/19 16:33 153 H 96 02/13/19 16:30 37.3 C 20 02/13/19 16:29 116 H 158/65 H 02/13/19 16:28 120 H 99 02/13/19 16:23 122 H 98 02/13/19 15:11 92 H 97 02/13/19 15:06 102 H 143/91 H 97 02/13/19 15:01 91 H 98 02/13/19 14:56 87 97 02/13/19 14:51 88 97 02/13/19 14:46 86 98 02/13/19 14:41 90 99 02/13/19 14:36 85 128/76 98 02/13/19 14:31 90 98 02/13/19 14:26 84 98 02/13/19 14:21 87 98 02/13/19 14:16 84 98 02/13/19 14:11 88 98 02/13/19 14:07 83 136/79 02/13/19 14:06 90 99 02/13/19 14:01 84 97 02/13/19 13:59 20 02/13/19 13:56 92 H 98 02/13/19 13:51 87 97 02/13/19 13:46 84 99 02/13/19 13:41 99 H 98 02/13/19 13:37 91 H 130/78 02/13/19 13:36 87 98 02/13/19 13:31 90 97 02/13/19 13:26 89 99 02/13/19 13:21 94 H 97 02/13/19 13:16 89 97 02/13/19 13:11 87 97 02/13/19 13:07 89 131/68 02/13/19 13:06 92 H 97 02/13/19 13:05 36.9 C 20 02/13/19 13:01 88 96 02/13/19 12:56 93 H 97 02/13/19 12:51 97 H 98 02/13/19 12:46 87 98 02/13/19 12:41 82 97 02/13/19 12:37 82 138/91 02/13/19 12:36 84 97 02/13/19 12:31 84 97 02/13/19 12:26 88 97 02/13/19 12:21 83 97 02/13/19 12:16 85 98 02/13/19 12:11 85 97 02/13/19 12:06 87 141/86 H 97 02/13/19 12:01 86 97 02/13/19 11:59 20 02/13/19 11:56 80 98 02/13/19 11:51 83 97 02/13/19 11:46 80 98 02/13/19 11:41 84 97 02/13/19 11:36 95 H 98 02/13/19 11:31 92 H 98 02/13/19 11:30 18 02/13/19 11:26 94 H 98 02/13/19 11:21 83 95 02/13/19 11:20 77 94 02/13/19 11:16 36.9 C 87 97 02/13/19 11:11 85 96 02/13/19 11:08 90 130/75 02/13/19 11:06 87 96 02/13/19 11:01 86 96 02/13/19 11:00 20 02/13/19 10:56 85 96 02/13/19 10:51 86 96 02/13/19 10:46 85 96 02/13/19 10:41 94 H 96 02/13/19 10:36 95 H 135/75 96 02/13/19 10:31 97 H 98 02/13/19 10:30 20 02/13/19 10:26 91 H 97 02/13/19 10:21 84 96 02/13/19 10:16 83 96 02/13/19 10:11 83 96 02/13/19 10:07 90 151/95 H 02/13/19 10:06 82 96 02/13/19 10:01 82 97 02/13/19 10:00 20 02/13/19 09:56 90 96 02/13/19 09:51 80 96 02/13/19 09:46 79 96 02/13/19 09:41 82 96 02/13/19 09:37 79 147/85 H 02/13/19 09:36 80 96 02/13/19 09:31 80 96 02/13/19 09:30 20 02/13/19 09:26 81 96 02/13/19 09:21 79 96 02/13/19 09:16 79 97 02/13/19 09:11 84 97 02/13/19 09:07 85 140/83 02/13/19 09:06 87 98 02/13/19 09:01 103 H 96 02/13/19 09:00 37.3 C 20 02/13/19 08:56 92 H 96 02/13/19 08:51 90 94 02/13/19 08:46 89 96 Lab Results (24hrs): Laboratory Tests (24 Hours) 02/13/19 02/13/19 19:07 19:07 WBC 15.96 H Neut # (Auto) 14.62 H Creatinine 0.69 Est Cr Clr Drug Dosing 155.1 - Risk Factors for Resistance * Antimicrobial use within the last 90 days [Ancef 3 grams pre-operatively.] - Assessment & Plan Assessment 28 year old F s/p section delivery of live male. 40 weeks gestation. WBC 13>>15.95 Pt now febrile at 38.3. Provider noted "smell" during delivery. Plan Gentamicin for treatment of post- genitourinary infection (non uti). Gentamicin * Patient meets criteria for extended-interval aminoglycoside dosing (CrCl > 60 mL/min). * Dose: 600 mg (5 mg/kg) IV every 24 hours * Dosage based on actual body weight per literature regarding post- gentamicin dosing. * Will order trough level with 4th dose if therapy continues. Target trough < 1mcg/mL. Pharmacy will continue to follow and will adjust dose/frequency as necessary. Thank you.
[2019-02-13] MEDS: SIMETHICONE 80 MG CHEW PO SCH (21:23)
[2019-02-13] MEDS: ACETAMINOPHEN 65 ML IV SCH (21:50)
[2019-02-13] MEDS: GENTAMICIN SULFATE 600 MG in DEXTROSE 5% 100 ML IV SCH (22:26)
--- NOTE | 2019-02-13 22:49 | Operative Report ---
DATE OF OPERATION: 02/13/2019 PREOPERATIVE DIAGNOSES: 1. Intrauterine at 40 and 4/7 weeks. 2. Failure to progress. POSTOPERATIVE DIAGNOSES: 1. Intrauterine at 40 and 4/7 weeks. 2. Failure to progress. PROCEDURES: Primary low transverse section. SURGEON: Lilo Nelson MD GRANULATOR: Tavia Estrada MD and Dr. Jaquan Lott, PGY-1. ESTIMATED BLOOD LOSS: 600 mL. INDICATIONS: The patient is a 1, para 0 who presented for induction for post-dates. She was admitted. She underwent Pitocin augmentation, amniotomy, intrauterine pressure catheter. We were never able to get her contraction pattern adequate. After being ruptured for 24 hours, the patient was still 4, 75%, and -3 station. We discussed options and she desired to proceed with primary section. FLUIDS: 1500 mL. URINE OUTPUT: 400 mL. FINDINGS: Viable male infant weighing 10 pounds 1 ounce, Apgars of 8 and 9. Uterus, tubes, and ovaries were noted bilaterally. Baby was coming down in the pelvis asynclitic in a slightly transverse position. COMPLICATIONS: None. DRAINS: Ward. DISPOSITION: To recovery room in stable condition. DESCRIPTION OF PROCEDURE: The patient was taken the operating room where she was identified verbally and by bracelet. She was transferred to the operating table, placed in a leftward tilt. Her Ward catheter had previously been placed. Her epidural was dosed. She was prepped and draped in normal sterile fashion. Her epidural was tested and found to be adequate. A time-out was held identifying correct patient, procedure, positioning. Had 3 grams of Ancef preoperatively for antibiotics. There were no concerns. A Pfannenstiel skin incision was made with a knife. This was taken down to the underlying layer of fascia with a knife and Bovie electrocautery. Bleeding was attended to with Bovie electrocautery. The fascia was incised in the midline and taken out laterally with scissors. The superior edge of the fascial incision was grasped, elevated, and the underlying layer of rectus muscle was taken off bluntly with scissors. In a similar fashion, the inferior edge of the fascial incision was grasped, elevated, and the underlying layer of rectus muscle was taken off bluntly and with scissors. The muscles were bluntly in the midline. The peritoneum was entered bluntly and stretched. The bladder blade was placed. A vesicouterine incision was made. The bladder flap was made by incising the vesicouterine peritoneum going out laterally with scissors and forming the bladder blade digitally. The bladder blade was placed. The hysterotomy incision was scored with a knife. The uterus was entered with a snap. Clear fluid was released on entering the uterus. The incision was stretched with the hydroelectric station operator's hand, but also required to be cut using bandage scissors laterally to the left. The head was then delivered up through the incision atraumatically. There was no nuchal cord. The nose and mouth were bulb suctioned. The rest of the was then delivered without difficulty. The cord was clamped and cut. The was handed off to the waiting pediatricians for drying and attention. Cord blood and cord segment were obtained. The placenta was manually extracted. There was a very strong odor of infection to the entire operative field at this time. Hemostasis was obtained with dilute Pitocin, massage, IM into the uterus with Hemabate and IM Methergine. The hysterotomy incision was repaired in 2 layers, the first in a running locked layer, the second in an imbricating layer. The posterior cul-de-sac was cleared of all clot and debris. The hysterotomy incision was again inspected and found to be hemostatic. The uterus was reanteriorized. The hysterotomy incision was again inspected. Some oozing on the bladder flap was attended to with Bovie electrocautery, but the incision was hemostatic. The muscles were reapproximated with several interrupted sutures of 0 Vicryl in the midline. The rectus muscles were examined and found to be hemostatic. The fascia was reapproximated using 0 Vicryl starting at the edges and meeting in the midline. The subcuticular tissue was copiously irrigated, it was hemostatic. Several horizontal mattress sutures of 2-0 Vicryl were used to close the space and the skin was closed with 4-0 Vicryl in a subcuticular fashion. All sponge, lap, and needle counts were correct x2. The patient tolerated the procedure well and was taken to the recovery room in stable condition. I attest to the content of the Intraoperative Record and any orders documented therein. Any exceptions are noted below. HOMER
[2019-02-14] MEDS: CLINDAMYCIN 600 MG in DEXTROSE 5% 50 ML IV SCH ×3 (03:34→21:23)
[2019-02-14] MEDS: ACETAMINOPHEN 65 ML IV SCH ×3 (04:43→16:31)
--- NOTE | 2019-02-14 06:34 | Obstetrical Progress Note ---
Date of Service <Jaquan Lott MD - Last Filed: 02/14/19 06:33> February 14, 2019 Assessment & Plan <Jaquan Lott MD - Last Filed: 02/14/19 06:33> (1) delivery delivered: Lakshmi is a 28yo who presented at 40+3 s/p for ftp now POD#1 - Very tender in the abdomen today. Scales is in palce, limited ambulation. Has not yet eaten, is intetested in breakfast today and is not nauseus. - Dressing C/D/I, remove this morning - Pain moderately well controlled, alternate toradol 30mg Q6H and APAP IV 650mg Q6H for overall pain dosing Q3H. Codeine/Hydrocodone contraindicated due to allergy. - Pans to breast feed, has not tried yet. Will attempt this morning and work with nurses - Routine post-op care - After discharge will have [address] Nelson. Subjective <Jaquan Lott MD - Last Filed: 02/14/19 06:33> Ambulation: ambulating normally Voiding: scales catheter in place Passing Gas:: Yes Diet Tolerance:: clear liquids (has not eaten yet, tolerating sips) Lochia:: Moderate Feeding Type:: breast feeding (plans to breast feed, hasn't tried yet) Current Pain Level(1-10): 6 (improves with rx) Review of Systems Denies fever, chills, sweats Denies shortness of breath, difficulty breathing, chest pain, palpitations, chest pressure. Denies breast pain. Denies dysuria. Denies headache. Endorses back pain. Physical Exam <Jaquan Lott MD - Last Filed: 02/14/19 06:33> General: Alert, oriented. No acute distress. Cardiac: Regular rate and rhythm, no murmurs/rubs/gallops. Respiratory: Clear to auscultation anterior and posteriorly, no wheezes/rales/rhonchi. No increased work of breathing. Symmetrical chest rise. No respiratory distress. Abdomen: Soft, tender, nondistended. Bowel sounds hypoactive. Surgical dressing in place, C/D/I Uterus: Uterine fundus firm, palpable at-~1cm below umbilicus. Lower Extremities: No lower extremity edema or swelling. No deep calf pain. Yolis's negative bilaterally. Results & Data <Jaquan Lott MD - Last Filed: 02/14/19 06:33> Vital Signs (Past 12 Hours) Vital Signs Temp Pulse Pulse Resp BP BP Pulse Ox 02/14/19 03:40 37.6 C H 115 H 18 122/78 99 02/13/19 23:30 37.2 C 113 H 20 119/77 02/13/19 20:15 37.2 C 103 H 20 145/98 H 96 02/13/19 18:48 114 H 98 02/13/19 18:46 109 H 157/93 H 02/13/19 18:43 110 H 96 02/13/19 18:40 38.3 C H 20 02/13/19 18:38 106 H 96 02/13/19 18:33 109 H 96 <Lilo Nelson MD, FACOG - Last Filed: 02/14/19 07:41> Co-Signing Physician Notes Resident Physician Supervision Note: I interviewed and examined the patient. Discussed with Dr. Lott and agree with findings and plan as documented in the note. Any exceptions or clarifications are listed here: With her anaphylaxis to codeine, her pain management options are limited. Will add tramadol orally to her regimen. Patient only had the one elevated temp upon leaving the labor and delivery room yesterday. Plan 24 hours of antibiotics as long as she remains afebrile. She has had just barely adequate uop overnight. will bolus this am and encourage po intake as her n/v has passed. Long discussion about her pain , that she will not be to a 0. Discussed the importance of early ambulation and that she is going to be paiful when she first gets up. Discussed that it will get better with each subsequent trial. Discussed that the worst will be for the first 24- 48 hours. May need to consult pain management if can't get her under control. Documented By: Lilo Nelson MD, FACOG Resident Activity Tracking <Jaquan Lott MD - Last Filed: 02/14/19 06:33> Resident Involvement: Resident Care Provided Care Provided: Adult [facility] Medicine
[2019-02-14] MEDS: LEVOTHYROXINE SODIUM 75 MCG TABLET PO SCH (06:45)
[2019-02-14 07:07] LABS: Basophils # (auto) 0.01 K/uL (0-0.2); Basophils % (auto) 0.1 %; Hematocrit (blood only) 24.6 % (37-47); Hemoglobin 8.1 g/dL (12.0-16.0); Immature Granulocytes # (auto) 0.05 K/uL (0.00-0.02); Immature Granulocytes % (auto) 0.3 %; Lymphocytes # (auto) 1.07 K/uL (1.2-3.4); Lymphocytes % (auto) 6.9 %; Mean Corpuscular Hgb Conc 32.9 g/dL (32-36); Mean Corpuscular Volume 81.7 fL (80-100); Mean Platelet Volume 11.2 fL (7.4-10.4); Monocytes # (auto) 0.84 K/uL (0.11-0.59); Monocytes % (auto) 5.4 %; Neutrophils # (auto) 13.54 K/uL (1.4-6.5); Neutrophils % (auto) 87.3 %; Platelet Count 152 K/uL (130-400); RDW Coefficient of Variation 16.2 % (11.5-14.5); RDW Standard Deviation 47.2 fL (36.4-46.3); Red Blood Count 3.01 M/uL (4.2-5.4); White Blood Count 15.51 K/uL (4.8-10.8)
[2019-02-14] MEDS ORDERED: LACTATED RINGER'S 500 ML IV ONE (07:34)
[2019-02-14 07:42] LABS: Creatinine Clr Calc Pharmacy 137.2 ml/min; Est GFR (African American) 121.6; Est GFR (Non-African American) 104.9
[2019-02-14] MEDS: KETOROLAC 30 MG/ML VIAL IV PRN (07:56)
[2019-02-14] MEDS ORDERED: LACTATED RINGER'S 1,000 ML IV SCH (08:00)
[2019-02-14] MEDS: SIMETHICONE 80 MG CHEW PO SCH ×4 (09:21→21:14)
[2019-02-14] MEDS: PRENATAL VITAMIN 1 TAB PO SCH (09:22)
--- NOTE | 2019-02-14 10:14 | Anesthesiology Progress Note ---
Date of Service February 14, 2019 Anesthesia Post Procedure Vital Signs Vital Signs: Temp Pulse Pulse Resp BP BP Pulse Ox 02/14/19 04:45 37.1 C 02/14/19 03:40 37.6 C H 115 H 18 122/78 99 02/13/19 23:30 37.2 C 113 H 20 119/77 02/13/19 20:15 37.2 C 103 H 20 145/98 H 96 02/13/19 18:48 114 H 98 02/13/19 18:46 109 H 157/93 H 02/13/19 18:43 110 H 96 02/13/19 18:40 38.3 C H 20 02/13/19 18:38 106 H 96 02/13/19 18:33 109 H 96 02/13/19 18:28 110 H 97 02/13/19 18:23 109 H 96 02/13/19 18:20 111 H 94 02/13/19 18:18 114 H 97 02/13/19 18:13 109 H 96 02/13/19 18:10 117 H 150/100 H 02/13/19 18:08 108 H 96 02/13/19 18:03 110 H 97 02/13/19 18:00 37.4 C 111 H 20 146/92 H 02/13/19 17:58 108 H 96 02/13/19 17:53 108 H 96 02/13/19 17:50 106 H 147/93 H 02/13/19 17:48 108 H 95 02/13/19 17:43 117 H 98 02/13/19 17:40 114 H 154/96 H 02/13/19 17:38 109 H 96 02/13/19 17:33 109 H 97 02/13/19 17:30 37.4 C 109 H 20 148/91 H 02/13/19 17:28 110 H 96 02/13/19 17:23 109 H 96 02/13/19 17:20 109 H 20 149/89 H 02/13/19 17:18 109 H 96 02/13/19 17:13 116 H 97 02/13/19 17:10 117 H 20 150/96 H 02/13/19 17:08 112 H 97 02/13/19 17:03 115 H 96 02/13/19 17:00 112 H 20 155/84 H 02/13/19 16:58 112 H 97 02/13/19 16:53 115 H 97 02/13/19 16:50 107 H 20 145/72 H 02/13/19 16:48 114 H 97 02/13/19 16:43 124 H 99 02/13/19 16:40 123 H 20 149/72 H 02/13/19 16:38 136 H 98 02/13/19 16:33 153 H 96 02/13/19 16:30 37.3 C 20 02/13/19 16:29 116 H 158/65 H 02/13/19 16:28 120 H 99 02/13/19 16:23 122 H 98 02/13/19 15:11 92 H 97 02/13/19 15:06 102 H 143/91 H 97 02/13/19 15:01 91 H 98 02/13/19 14:56 87 97 02/13/19 14:51 88 97 02/13/19 14:46 86 98 02/13/19 14:41 90 99 02/13/19 14:36 85 128/76 98 02/13/19 14:31 90 98 02/13/19 14:26 84 98 02/13/19 14:21 87 98 02/13/19 14:16 84 98 02/13/19 14:11 88 98 02/13/19 14:07 83 136/79 02/13/19 14:06 90 99 02/13/19 14:01 84 97 02/13/19 13:59 20 02/13/19 13:56 92 H 98 02/13/19 13:51 87 97 02/13/19 13:46 84 99 02/13/19 13:41 99 H 98 02/13/19 13:37 91 H 130/78 02/13/19 13:36 87 98 02/13/19 13:31 90 97 02/13/19 13:26 89 99 02/13/19 13:21 94 H 97 02/13/19 13:16 89 97 02/13/19 13:11 87 97 02/13/19 13:07 89 131/68 02/13/19 13:06 92 H 97 02/13/19 13:05 36.9 C 20 02/13/19 13:01 88 96 02/13/19 12:56 93 H 97 02/13/19 12:51 97 H 98 02/13/19 12:46 87 98 02/13/19 12:41 82 97 02/13/19 12:37 82 138/91 02/13/19 12:36 84 97 02/13/19 12:31 84 97 02/13/19 12:26 88 97 02/13/19 12:21 83 97 02/13/19 12:16 85 98 02/13/19 12:11 85 97 02/13/19 12:06 87 141/86 H 97 02/13/19 12:01 86 97 02/13/19 11:59 20 02/13/19 11:56 80 98 02/13/19 11:51 83 97 02/13/19 11:46 80 98 02/13/19 11:41 84 97 02/13/19 11:36 95 H 98 02/13/19 11:31 92 H 98 02/13/19 11:30 18 02/13/19 11:26 94 H 98 02/13/19 11:21 83 95 02/13/19 11:20 77 94 02/13/19 11:16 36.9 C 87 97 02/13/19 11:11 85 96 02/13/19 11:08 90 130/75 02/13/19 11:06 87 96 02/13/19 11:01 86 96 02/13/19 11:00 20 02/13/19 10:56 85 96 02/13/19 10:51 86 96 02/13/19 10:46 85 96 02/13/19 10:41 94 H 96 02/13/19 10:36 95 H 135/75 96 02/13/19 10:31 97 H 98 02/13/19 10:30 20 02/13/19 10:26 91 H 97 02/13/19 10:21 84 96 02/13/19 10:16 83 96 Pain Intensity Bilateral Abdomen: Pain Intensity: 6 Notes Mental Status: alert / awake / arousable and participated in evaluation Nausea / Vomiting: adequately controlled Pain: adequately controlled Airway Patency, RR, SpO2: stable & adequate BP & HR: stable & adequate Hydration State: stable & adequate Neuraxial Anesthesia: was administered and sensory block resolved Anesthetic Complications: no major complications apparent and Pt Satisfied with anesthetic care Notes: Pt denies headache at this time.
[2019-02-14] MEDS: TRAMADOL HCL 50 MG TABLET PO PRN ×3 (13:31→21:43)
[2019-02-14] MEDS: IBUPROFEN 600 MG TAB PO PRN (21:43)
[2019-02-14] MEDS: GENTAMICIN SULFATE 600 MG in DEXTROSE 5% 100 ML IV SCH (22:20)
[2019-02-15] MEDS: IBUPROFEN 600 MG TAB PO PRN ×3 (05:01→19:59)
[2019-02-15] MEDS: ACETAMINOPHEN 325 MG TAB PO PRN ×3 (05:02→17:16)
[2019-02-15] MEDS: LEVOTHYROXINE SODIUM 75 MCG TABLET PO SCH (06:07)
[2019-02-15 06:25] LABS: Hematocrit (blood only) 23.1 % (37-47); Hemoglobin 7.5 g/dL (12.0-16.0)
[2019-02-15 07:02] LABS: Creatinine Clr Calc Pharmacy 164.6 ml/min; Est GFR (Non-African American) 122.5
[2019-02-15] MEDS: TRAMADOL HCL 50 MG TABLET PO PRN ×3 (07:46→19:58)
--- NOTE | 2019-02-15 07:57 | Obstetrical Progress Note ---
Date of Service February 15, 2019 Assessment & Plan (1) delivery delivered: doing well, stable, enc ambulation, use of po pain meds. offered walker for assistance. Subjective Ambulation: limited ambulation Voiding: no voiding problems Passing Gas:: Yes Diet Tolerance:: regular diet Lochia:: Small Feeding Type:: breast feeding using tylenol, motrin and ultram for pain control, getting around slowly. denies n/v, cp or sob. Physical Exam Constitutional WD/WN, vitals as above Respiratory normal respiratory effort, lungs clear to auscultation Cardiovascular Rate/Rhythm: regular rate and regular rhythm Gastrointestinal (Abdomen) ff 2 down, appropriately tender, incision c/d/i +bs Musculoskeletal nt calves. Results & Data Vital Signs (Past 12 Hours) Vital Signs Temp Pulse Resp BP Pulse Ox 02/15/19 07:30 36.8 C 98 H 20 123/81 96 02/15/19 00:00 36.9 C 111 H 18 122/75 02/14/19 21:15 37.2 C 110 H 18 127/85 97
[2019-02-15] MEDS: PRENATAL VITAMIN 1 TAB PO SCH (09:03)
[2019-02-15] MEDS: SIMETHICONE 80 MG CHEW PO SCH ×4 (09:03→19:58)
[2019-02-16] MEDS: TRAMADOL HCL 50 MG TABLET PO PRN ×5 (00:44→23:44)
[2019-02-16] MEDS: IBUPROFEN 600 MG TAB PO PRN ×4 (05:10→22:35)
--- NOTE | 2019-02-16 05:53 | Obstetrical Progress Note ---
Date of Service February 16, 2019 Assessment & Plan (1) delivery delivered: doing well, aware she needs to ambulate more, po pain meds reviewed. expectations for pain reviewed. routine care. Subjective Ambulation: ambulating normally Voiding: no voiding problems Passing Gas:: Yes Diet Tolerance:: regular diet Lochia:: Small Feeding Type:: bottle feeding plans to try to pump breasts for milk. having pain this am but slept and behind on meds. she notes that she feels like she needs to move more today. Physical Exam Constitutional WD/WN, vitals as above Respiratory normal respiratory effort, lungs clear to auscultation Cardiovascular Rate/Rhythm: regular rate and regular rhythm Gastrointestinal (Abdomen) ff at u, appropriately tender, incision c/d/i, nabs Musculoskeletal nt calves Results & Data Vital Signs (Past 12 Hours) Vital Signs Temp Pulse Resp BP 02/16/19 00:25 36.9 C 101 H 18 124/81 02/15/19 19:50 36.9 C 112 H 20 128/84
[2019-02-16] MEDS: LEVOTHYROXINE SODIUM 75 MCG TABLET PO SCH (06:12)
[2019-02-16 07:22] LABS: Creatinine Clr Calc Pharmacy 150.7 ml/min; Est GFR (African American) 136.2; Est GFR (Non-African American) 117.6
[2019-02-16] MEDS: SIMETHICONE 80 MG CHEW PO SCH ×4 (08:41→20:33)
[2019-02-16] MEDS: PRENATAL VITAMIN 1 TAB PO SCH (08:42)
[2019-02-16] MEDS: ACETAMINOPHEN 325 MG TAB PO PRN ×3 (08:42→20:33)
[2019-02-17] MEDS: ACETAMINOPHEN 325 MG TAB PO PRN (03:35)
--- NOTE | 2019-02-17 06:20 | Obstetrical Progress Note ---
Date of Service <Jaquan Lott MD - Last Filed: 02/17/19 06:20> February 17, 2019 Assessment & Plan <Jaquan Lott MD - Last Filed: 02/17/19 06:20> (1) delivery delivered: Lakshmi is a 28yo who presented at 40+3 s/p for ftp now POD#4 - Pain improved yesterday with ambulation, 02/16 when waking up this morning - s/p 24 hours of abx, remains afebrile since 02/14 - Surgical incision well healing - Pain expectations discussed with pt, adequate control yesterday with APAP/Ibuprofen. Codeine/Hydrocodone contraindicated due to allergy. - Bottle feeding, no concerns - Routine post-op care - After discharge will have [address] Nelson. Subjective <Jaquan Lott MD - Last Filed: 02/17/19 06:20> Ambulation: ambulating normally Voiding: no voiding problems Passing Gas:: Yes Diet Tolerance:: regular diet Lochia:: Small Feeding Type:: bottle feeding Current Pain Level(1-10): 6 (improved with ambulation and motrin. Reports pain was improved yesterday after walking and sitting in chair) Review of Systems Denies fever, chills, sweats Denies shortness of breath, difficulty breathing, chest pain, palpitations, chest pressure. Denies breast pain. Denies dysuria. Denies headache. Physical Exam <Jaquan Lott MD - Last Filed: 02/17/19 06:20> General: Alert, oriented. No acute distress. Cardiac: Regular rate and rhythm, no murmurs/rubs/gallops. Respiratory: Clear to auscultation anterior and posteriorly, no wheezes/rales/rhonchi. No increased work of breathing. Symmetrical chest rise. No respiratory distress. Abdomen: Soft, nontender, nondistended. Bowel sounds present. Surgical incision intact, without erythema/warmth/tenderness/discharge/dehiscence Uterus: Uterine fundus firm, palpable >2cm below umbilicus. Lower Extremities: No lower extremity edema or swelling. No deep calf pain. Yolis's negative bilaterally. Results & Data <Jaquan Lott MD - Last Filed: 02/17/19 06:20> Vital Signs (Past 12 Hours) Vital Signs Temp Pulse Pulse Resp BP BP Pulse Ox 02/16/19 23:10 37.3 C 108 H 18 118/80 02/16/19 20:00 36.6 C 96 H 18 120/81 98 <Marcelino Kinsey Jr, MD, FACOG - Last Filed: 02/17/19 07:36> Co-Signing Physician Notes Resident Physician Supervision Note: I was present with Dr. Lott during the history and exam. I discussed the case with the resident and agree with the findings and plan as documented in the note. Any exceptions or clarifications are listed here: D/C instructions given. F/U in 6 weeks Documented By: Marcelino Kinsey Jr, MD, FACOG Resident Activity Tracking <Jaquan Lott MD - Last Filed: 02/17/19 06:20> Resident Involvement: Resident Care Provided Care Provided: Adult Hospital Medicine
[2019-02-17] MEDS: LEVOTHYROXINE SODIUM 75 MCG TABLET PO SCH (06:23)
[2019-02-17] MEDS: TRAMADOL HCL 50 MG TABLET PO PRN ×2 (06:23→11:42)
[2019-02-17] MEDS: SIMETHICONE 80 MG CHEW PO SCH ×2 (08:14→12:21)
[2019-02-17] MEDS: PRENATAL VITAMIN 1 TAB PO SCH (08:14)
[2019-02-17] MEDS: IBUPROFEN 600 MG TAB PO PRN (08:14)
--- NOTE | 2019-02-20 09:02 | Discharge Summary ---
ADMITTING DIAGNOSES: 1. Intrauterine at 40 and 2/7 weeks. 2. Induction of labor. PROCEDURES: 1. Ward bulb for cervical ripening. 2. Epidural anesthesia. 3. Pitocin augmentation. DISCHARGE DIAGNOSES: 1. Intrauterine at 40 and 2/7 weeks. 2. Induction of labor. 3. Failure to progress. 4. Chorioamnionitis. PROCEDURES: Primary low transverse section. HISTORY OF PRESENT ILLNESS: The patient is a 28-year-old 1, para 0 with an EDC of 02/10/2019, who presented to labor and delivery for induction. She had a Ward bulb placed the night before she presented. She presented on the morning of induction and there is no documentation of where she started or if the Ward bulb would come out and she was admitted and underwent induction throughout the day. HOSPITAL COURSE: I took over the patient on the morning of 02/13. Her cervix was about 5, 75 and -2 at best. We were unable to get the contractions adequate with a maximum dose of Pitocin and an intrauterine pressure catheter. She had been ruptured for over 24 hours and not had any change in 7 hours where I was trying to get her adequate with Pitocin. She was afebrile and the fetus was category 1. Discussed options including continuing Pitocin given the fact that the patient was afebrile and the fetus was category 1. However, the patient shows at that time to proceed with primary section. The patient underwent a primary section with estimated blood loss of 600 mL. She did not progress past 4-5, 75%, -3 station. She delivered a viable male weighing 10 pounds 1 ounce with Apgars of 8 and 9. Uterus, tubes, and ovaries were noted to be normal bilaterally. The baby was coming down in the pelvis asynclitic in a slightly transverse position. Upon entering the uterus, foul smell consistent with chorioamnionitis was noted. COURSE: The patient spiked a T-max to 38.3 just before she was transferred over to the unit and so she was started on clindamycin and gentamicin. She remained on this for 24 hours and was afebrile. She tolerated a regular diet. Her Ward was removed. She voided. She ambulated slowly but without difficulty. Her biggest issue in the course was that she has anaphylaxis to codeine and so could not take narcotic medications, so she was managed to the best of our ability with IV Tylenol, IV Toradol, p.o. Tylenol, p.o. ibuprofen and Ultram. She was eventually discharged home on postoperative day #4 with prescriptions for these. Her discharge H and H was 7.5 and 23.1. Incision was clean, dry and intact.
== END 2019-02-17 14:05 | disposition home or self-care (01) | DRG 787 ==
LOC: 4S1 07:24 → 4S2 08:24 → 4S1 13:27 → 4S2 02-13 19:08

== ENCOUNTER 2023-05-18 21:30 | Inpatient (IN) ==
[2023-05-18] MEDS ORDERED: FAMOTIDINE 20MG IV PUSH 20 MG/5 ML SYR IV STA (21:59)
[2023-05-18] MEDS ORDERED: SODIUM CHLORIDE 0.9% 1,000 ML IV ONE (21:59)
[2023-05-18] MEDS ORDERED: ONDANSETRON INJ 2 MG/ML 2 ML VIAL IV STA (21:59)
[2023-05-18] MEDS ORDERED: fentaNYL citrate PF 100 MCG/2 ML VIAL IV STA (22:01)
[2023-05-18] MEDS ORDERED: ACETAMINOPHEN 1,000 MG/100 ML VIAL IV STA (22:01)
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
[2023-05-18 22:27] LABS: Basophils # (auto) 0.01 K/uL (0.00-0.20); Basophils % (auto) 0.2 %; Eosinophils # (auto) 0.05 K/uL (0.00-0.50); Eosinophils % (auto) 0.8 %; Hematocrit (blood only) 39.7 % (37.0-47.0); Hemoglobin 13.3 g/dl (12.0-16.0); Immature Granulocytes # (auto) 0.02 K/uL (0.01-0.20); Immature Granulocytes % (auto) 0.3 %; Lymphocytes # (auto) 1.77 K/uL (1.20-3.40); Lymphocytes % (auto) 26.8 %; Mean Corpuscular Hemoglobin 26.5 pg (25.0-34.0); Mean Corpuscular Hgb Conc 33.5 g/dL (32.0-36.0); Mean Corpuscular Volume 79.1 fL (80.0-100.0); Mean Platelet Volume 11.6 fL (9.4-12.4); Monocytes # (auto) 0.34 K/uL (0.11-0.59); Monocytes % (auto) 5.2 %; Neutrophils # (auto) 4.41 K/uL (1.40-6.50); Neutrophils % (auto) 66.7 %; Platelet Count 232 K/uL (130-400); RDW Coefficient of Variation 13.3 % (11.5-14.5); Red Blood Count 5.02 M/uL (4.20-5.40)
[2023-05-18 22:27] LABS: Appearance Urine Clear (Clear); Bacteria Urine Automated Negative (Negative); Bilirubin Urine Negative (Negative); Blood Urine 1+ (Negative); Color Urine Yellow; Epithelial Cell Urine Auto 20-30 /lpf (0-5); Glucose Urine UA Negative (Negative); Ketones Urine Negative (Negative); Leukocyte Esterase Urine Negative (Negative); Nitrite Urine Negative (Negative); Protein Urine Trace (Negative); Specific Gravity Urine 1.029 (1.000-1.030); Urobilinogen Urine Negative (Negative)
[2023-05-18 22:46] LABS: Albumin Globulin Ratio 1.3 (0.9-2); Albumin Level 4.3 gm/dl (3.4-5.0); Bilirubin,Total 0.3 mg/dl (0.2-1.0); Calcium 9.3 mg/dl (8.6-10.3); Creatinine Clr Calc Pharmacy 134.8 ml/min; Est GFR (African American) 134.4 ml/min; Globulin 3.4 gm/dl (2.5-4.0); Potassium 3.5 mmol/L (3.5-5.1); Total Protein 7.7 gm/dl (6.0-8.3)
[2023-05-18 22:47] LABS: Pregnancy Test, Serum Negative (Negative)
--- NOTE | 2023-05-18 23:47 | Ultrasound Report ---
ULTRASOUND RIGHT UPPER QUADRANT ABDOMEN CLINICAL HISTORY: Right upper quadrant abdominal pain. COMPARISON STUDY: Abdominal CT and ultrasound dated 05/15/2023. TECHNIQUE: Real-time, grayscale, and color flow sonography of the right upper quadrant of the abdomen was performed. Images are reviewed in the transverse and longitudinal planes. FINDINGS: Liver: The liver is enlarged and demonstrates heterogeneous increased echotexture indicating steatosi s. Fatty sparing is seen adjacent to the gallbladder fossa. There is no intrahepatic biliary ductal d ilatation. The main portal vein is patent. An indeterminant 1.0 cm hypoechoic focus in the right lobe is unchanged. This could not be corroborated on the recent abdominal CT scan and is of low suspicion . Gallbladder: The gallbladder is distended and contains shadowing stones as well as biliary sludge. Th ere is no gallbladder wall thickening or pericholecystic fluid. A sonographic Powers's sign could not be assessed as the patient received analgesia. The common bile duct measures up to 0.3 cm in diamete r. Pancreas: Visualized portions of the pancreatic head and body are normal in appearance. The splenic v ein is patent. Right kidney: Survey images of the right kidney demonstrate normal size and echotexture. There is no hydronephrosis. Ascites: None. IMPRESSION: 1. Cholelithiasis and biliary sludge within a distended gallbladder. There is no definitive sonograph ic evidence of acute cholecystitis. Clinical and laboratory correlation will be required. If there is strong clinical concern for acute cholecystitis a nuclear hepatobiliary scan should be obtained. 2. There is no intra or extrahepatic biliary ductal dilatation. 3. Hepatomegaly and hepatic steatosis. 4. A low suspicion indeterminant 1.0 cm hypoechoic focus in the right lobe is unchanged. ACT 112: Negative or not required by law. Electronically signed by: Idris Ramírez M.D. 05/18/2023 11:45 PM
[2023-05-19] MEDS ORDERED: D5W AND LACTATED RINGERS 1,000 ML IV ONE (00:02)
[2023-05-19] MEDS ORDERED: PIPERACILLIN/TAZOBACTAM 4.5 GM/120 ML BAG IV ONE (00:10)
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
[2023-05-19] MEDS ORDERED: PROMETHAZINE HCL 12.5 MG in SODIUM CHLORIDE 0.9% 50 ML IV PRN (00:37)
[2023-05-19] MEDS ORDERED: oxyCODONE HCL IR 5 MG TAB (IMMEDIATE RELEASE) PO PRN (00:37)
[2023-05-19] MEDS ORDERED: ACETAMINOPHEN 325 MG TAB PO PRN (00:37)
[2023-05-19] MEDS ORDERED: LORazepam 0.5 MG TAB PO PRN (00:37)
[2023-05-19] MEDS ORDERED: KETOROLAC TROMETHAMINE 15 MG/ML VIAL ONE (01:01)
[2023-05-19] MEDS: KETOROLAC TROMETHAMINE 15 MG/ML VIAL IV PRN ×3 (05:39→19:40)
[2023-05-19] MEDS: LEVOTHYROXINE SODIUM 112 MCG TABLET PO SCH (05:40)
[2023-05-19] MEDS: PIPERACILLIN/TAZOBACTAM 4.5 GM in DEXTROSE 5% 100 ML IV SCH ×3 (05:40→21:43)
[2023-05-19] MEDS: FLUoxetine HCL 20 MG CAP PO SCH (08:17)
[2023-05-19] MEDS: PANTOprazole 40 MG TAB PO SCH (08:17)
[2023-05-19 08:23] LABS: Basophils # (auto) 0.01 K/uL (0.00-0.20); Basophils % (auto) 0.2 %; Eosinophils # (auto) 0.07 K/uL (0.00-0.50); Eosinophils % (auto) 1.3 %; Hematocrit (blood only) 37.8 % (37.0-47.0); Hemoglobin 12.7 g/dl (12.0-16.0); Immature Granulocytes # (auto) 0.02 K/uL (0.01-0.20); Immature Granulocytes % (auto) 0.4 %; Lymphocytes # (auto) 1.57 K/uL (1.20-3.40); Lymphocytes % (auto) 29.7 %; Mean Corpuscular Hemoglobin 26.6 pg (25.0-34.0); Mean Corpuscular Hgb Conc 33.6 g/dL (32.0-36.0); Mean Corpuscular Volume 79.1 fL (80.0-100.0); Mean Platelet Volume 11.4 fL (9.4-12.4); Monocytes # (auto) 0.31 K/uL (0.11-0.59); Monocytes % (auto) 5.9 %; Neutrophils % (auto) 62.5 %; Platelet Count 198 K/uL (130-400); RDW Coefficient of Variation 13.4 % (11.5-14.5); RDW Standard Deviation 38.5 fL (36.4-46.3); Red Blood Count 4.78 M/uL (4.20-5.40); White Blood Count 5.28 K/ul (4.8-10.8)
[2023-05-19 08:40] LABS: Albumin Level 3.8 gm/dl (3.4-5.0); Bilirubin,Total 0.4 mg/dl (0.2-1.0); Calcium 8.4 mg/dl (8.6-10.3); Potassium 3.6 mmol/L (3.5-5.1)
[2023-05-19 08:46] LABS: Albumin Globulin Ratio 1.2 (0.9-2); BUN Creatinine Ratio 9.9 (10-20); Creatinine Clr Calc Pharmacy 131.7 ml/min; Est GFR (African American) 131.5 ml/min; Est GFR (Non-African American) 113.5 ml/min; Globulin 3.1 gm/dl (2.5-4.0); Total Protein 6.9 gm/dl (6.0-8.3)
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
[2023-05-19] MEDS: D5W AND LACTATED RINGERS 1,000 ML IV SCH (13:19)
--- NOTE | 2023-05-19 14:15 | Hospitalist Progress Note ---
Date of Service May 19, 2023 Assessment & Plan (1) Biliary colic: Plan: Cholelithiasis Biliary colic R/O acute cholecystitis --Gall Bladder USD:Cholelithiasis and biliary sludge within a distended gallbladder. There is no definitive sonographic evidence of acute cholecystitis. Clinical and laboratory correlation will be required. If there is strong clinical concern for acute cholecystitis a nuclear hepatobiliary scan should be obtained. There is no intra or extrahepatic biliary ductal dilatation. Hepatomegaly and hepatic steatosis. A low suspicion indeterminant 1.0 cm hypoechoic focus in the right lobe is unchanged. 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 Appreciate surgery input Hypothyroidism Outpatient TSH Continue levothyroxine Bronchial asthma Past tobacco use No signs of acute exacerbation Morbid obesity BMI 40 DVT Px: SCDs for now CODE STATUS Full code Admission and Anticipated Discharge Date Admission Date: May 19, 2023 Subjective Patient is seen and examined at bedside States having mild epigastric abdominal pain Denies any nausea, vomiting, chest pain, dyspnea, dizziness No other complaints Review of Systems Review of Systems: All systems reviewed & are unremarkable except as noted in Subjective Physical Exam Physical Exam: Physical Exam: Vitals signs as noted above General Appearance:Obese, no apparent distress Head: normocephalic, Atraumatic Eyes: normal inspection, EOMI Neck: supple, Trachea midline Respiratory/Chest: Normal breath sounds, CTA, No accessory muscle use Cardiovascular: S1, S2, No murmur Abdomen/GI:Soft, +mild epigastric tender, Bowel sounds present Extremities/Musculoskeletal:normal inspection, no edema Neurologic/Psych:AAOX3, grossly no focal neurological deficits Skin: normal color, warm Results & Data Results & Data Vital Signs (Past 12 Hours) Vital Signs Temp Pulse Resp BP Pulse Ox O2 Del Method 05/19/23 08:11 36.6 C 70 18 125/86 97 Room Air 05/19/23 02:23 36.7 C 69 16 114/75 100 Room Air Laboratory Results Short CBC 05/18/23 05/19/23 Range/Units 21:51 08:00 WBC 6.60 5.28 (4.8-10.8) K/ul Hgb 13.3 12.7 (12.0-16.0) g/dl Hct 39.7 37.8 (37.0-47.0) % Plt Count 232 198 (130-400) K/uL BMP 05/18/23 05/19/23 21:51 08:00 Sodium 135 L 137 Potassium 3.5 3.6 Chloride 104 106 Carbon Dioxide 23 24 BUN 9 7 Creatinine 0.69 0.71 Glucose 93 78 Calcium 9.3 8.4 L Liver Function 05/18/23 05/19/23 Range/Units 21:51 08:00 Total Bilirubin 0.3 0.4 (0.2-1.0) mg/dl AST 13 11 L (13-39) U/L ALT 11 9 (7-52) U/L Alkaline Phosphatase 48 38 (34-104) U/L Albumin 4.3 3.8 (3.4-5.0) gm/dl Urine 05/18/23 Range/Units 21:46 Urine Color Yellow Urine Appearance Clear (Clear) Urine pH 7.0 (4.5-7.5) Ur Specific [place] 1.029 (1.000-1.030) Urine Protein Trace H (Negative) Urine Glucose (UA) Negative (Negative)
[2023-05-19 21:31] LABS: Basophils # (auto) 0.02 K/uL (0.00-0.20); Basophils % (auto) 0.4 %; Eosinophils # (auto) 0.06 K/uL (0.00-0.50); Eosinophils % (auto) 1.1 %; Hematocrit (blood only) 39.9 % (37.0-47.0); Hemoglobin 13.3 g/dl (12.0-16.0); Immature Granulocytes # (auto) 0.01 K/uL (0.01-0.20); Immature Granulocytes % (auto) 0.2 %; Lymphocytes # (auto) 1.57 K/uL (1.20-3.40); Lymphocytes % (auto) 29.3 %; Mean Corpuscular Hemoglobin 26.6 pg (25.0-34.0); Mean Corpuscular Hgb Conc 33.3 g/dL (32.0-36.0); Mean Corpuscular Volume 79.8 fL (80.0-100.0); Mean Platelet Volume 11.3 fL (9.4-12.4); Monocytes # (auto) 0.34 K/uL (0.11-0.59); Monocytes % (auto) 6.4 %; Neutrophils # (auto) 3.35 K/uL (1.40-6.50); Neutrophils % (auto) 62.6 %; Platelet Count 208 K/uL (130-400); RDW Coefficient of Variation 13.4 % (11.5-14.5); White Blood Count 5.35 K/ul (4.8-10.8)
[2023-05-19 21:33] LABS: Prothrombin Time 10.7 Seconds (9.0-12.0)
[2023-05-19] MEDS: PATIENT'S OWN ORAL CONTRACEPTIVE PO SCH (21:38)
[2023-05-20] MEDS: LEVOTHYROXINE SODIUM 112 MCG TABLET PO SCH (05:44)
[2023-05-20] MEDS: PIPERACILLIN/TAZOBACTAM 4.5 GM in DEXTROSE 5% 100 ML IV SCH ×3 (06:01→21:56)
[2023-05-20] MEDS: KETOROLAC TROMETHAMINE 15 MG/ML VIAL IV PRN ×4 (06:08→21:57)
[2023-05-20 07:33] LABS: Hematocrit (blood only) 36.9 % (37.0-47.0); Hemoglobin 12.2 g/dl (12.0-16.0); Mean Corpuscular Hemoglobin 26.5 pg (25.0-34.0); Mean Corpuscular Hgb Conc 33.1 g/dL (32.0-36.0); Mean Corpuscular Volume 80.2 fL (80.0-100.0); Mean Platelet Volume 11.3 fL (9.4-12.4); Platelet Count 210 K/uL (130-400); RDW Coefficient of Variation 13.3 % (11.5-14.5); RDW Standard Deviation 38.2 fL (36.4-46.3); White Blood Count 6.12 K/ul (4.8-10.8)
[2023-05-20 07:47] LABS: BUN Creatinine Ratio 7.8 (10-20); Calcium 8.5 mg/dl (8.6-10.3); Creatinine Clr Calc Pharmacy 121.5 ml/min; Est GFR (African American) 119.2 ml/min; Est GFR (Non-African American) 102.9 ml/min; Magnesium 1.9 mg/dl (1.7-2.4); Potassium 3.6 mmol/L (3.5-5.1)
[2023-05-20] MEDS: D5W AND LACTATED RINGERS 1,000 ML IV SCH (10:15)
--- NOTE | 2023-05-20 10:25 | Surgery Progress Note ---
Date of Service May 20, 2023 Assessment & Plan (1) Gallstones: Plan: Patient was to f/u o/p however pain was to severe she came back to ER 05/18/23 Ultrasound shows:Cholelithiasis and biliary sludge within a distended gallbladder. Patient schedule for a HIDA scan today at 1300 WBC 6.1 on 05/19/23 Total bilirubin 0.4, AST 11, ALT 9 Alkaline phosphatase 38 Would keep NPO Provide IV fluids and pain medication. Will continue to monitor Admission and Anticipated Discharge Date Admission Date: May 19, 2023 Supervising Physician Co-Signing Physician Notes Patient seen and examined, labs and imaging reviewed, agree with above. 33-year-old female with known gallstones was supposed to see me in the clinic today presented to the emergency department over the night with increase in her epigastric pain. She has been having postprandial epigastric pain over the past several months. No prior abdominal surgery, allergies to codeine and Vicodin. On exam she is afebrile with stable vitals, BMI 40, abdomen soft, mildly tender to palpation in right upper quadrant that radiates to the epigastrium. Ultrasound personally viewed and interpreted agree with the assessment of distended gallbladder with no gallbladder wall thickening or pericholecystic fluid. She does have some gallstones. She is scheduled to have a HIDA later today. We will follow-up the results of this, but given her symptoms would likely plan for cholecystectomy in either case. We will plan for robotic assisted laparoscopic cholecystectomy tomorrow. She may have clear liquids after the HIDA, n.p.o. after midnight. Subjective Patient sitting in bed Reports she went to ER last Saturday and was sent home and had an appointment with Dr. Parham today as outpatient. However pain in epigastric area was to severe so she came back to ER 05/18/[address] and was seen [address] Dr[address] Leiva which requested we see patient since she was to see Dr. Parham. Patient reports some nausea without vomiting and with abdominal pain rating pain a 7 out of 10. Last BM was Saturday, smaller than normal. Reports pain is mostly in epigastric area. Review of Systems Constitutional: no fever and no sweats Respiratory: no dyspnea Cardiovascular: no chest pain Gastrointestinal: + abdominal pain and + nausea; no vomiting Physical Exam Constitutional: well developed, cooperative and comfortable; no acute distress Respiratory: normal respiratory effort Cardiovascular: Rate/Rhythm: regular rate Gastrointestinal (Abdomen): Inspection/Auscultation: abdomen not distended Percussion/Palpation: + abdomen tender and abdomen soft; no guarding and no hepatomegaly Over weight abdomen, TTP in epigastric area, RUQ Results & Data Vital Signs (Past 12 Hours) Vital Signs Temp Pulse Resp BP Pulse Ox O2 Del Method 05/20/23 08:13 98.2 F 90 16 116/78 95 Room Air Diagnostic Findings [place], [place] [phone] Ultrasound Report Patient:ANISH CANTU Admit Date:05/18/23 MR#:[id number] Address1:[address] Acct ID:[id number] Address2:[address] Date:1990 [facility] Zip:[place] [address] Age:33 Location:ED Sex:F Room/Bed: Att Phy: Diagnosis:ABD PAIN Beverly Phy:Pierce Duff III, MD Service Date:05/18/23 Fam Phy: Interpreting Phy:Idris Ramírez MDAdmit Phy: Ordering Phy:Soledad Elkins PA-C cc: ~ ULTRASOUND RIGHT UPPER QUADRANT ABDOMEN CLINICAL HISTORY: Right upper quadrant abdominal pain. COMPARISON STUDY: Abdominal CT and ultrasound dated 05/15/2023. TECHNIQUE: Real-time, grayscale, and color flow sonography of the right upper quadrant of the abdomen was performed. Images are reviewed in the transverse and longitudinal planes. FINDINGS: Liver: The liver is enlarged and demonstrates heterogeneous increased echotexture indicating steatosis. Fatty sparing is seen adjacent to the gallbladder fossa. There is no intrahepatic biliary ductal dilatation. The main portal vein is patent. An indeterminant 1.0 cm hypoechoic focus in the right lobe is unchanged. This could not be corroborated on the recent abdominal CT scan and is of low suspicion. Gallbladder: The gallbladder is distended and contains shadowing stones as well as biliary sludge. There is no gallbladder wall thickening or pericholecystic fluid. A sonographic Powers's sign could not be assessed as the patient received analgesia. The common bile duct measures up to 0.3 cm in diameter. Pancreas: Visualized portions of the pancreatic head and body are normal in appearance. The splenic vein is patent. Right kidney: Survey images of the right kidney demonstrate normal size and echotexture. There is no hydronephrosis. Ascites: None. IMPRESSION: 1. Cholelithiasis and biliary sludge within a distended gallbladder. There is no definitive sonographic evidence of acute cholecystitis. Clinical and laboratory correlation will be required. If there is strong clinical concern for acute cholecystitis a nuclear hepatobiliary scan should be obtained. 2. There is no intra or extrahepatic biliary ductal dilatation. 3. Hepatomegaly and hepatic steatosis. 4. A low suspicion indeterminant 1.0 cm hypoechoic focus in the right lobe is unchanged. ACT 112: Negative or not required by law. Electronically signed by: Idris Ramírez M.D. 05/18/2023 11:45 PM Dictated:05/18/23 2341 Transcribed: 05/18/23 2341 PG Care Time/CCT Total # of Minutes Spent Total Time Spent with Patient: Total time spent is greater than 50% in coordination of care (as documented) at patient's floor/unit and/or counseling patient: Coding Level of Care Code 16828 SUB INP/OBS CARE 3/50MIN Diagnoses Gallstones K80.20
[2023-05-20] MEDS: PANTOprazole 40 MG TAB PO SCH ×2 (13:25→15:22)
[2023-05-20] MEDS: PATIENT'S OWN ORAL CONTRACEPTIVE PO SCH (13:25)
[2023-05-20] MEDS: FLUoxetine HCL 20 MG CAP PO SCH ×2 (13:25→15:23)
--- NOTE | 2023-05-20 13:49 | Nuclear Medicine Report ---
NUCLEAR MEDICINE HEPATOBILIARY SCAN CLINICAL HISTORY: Right upper quadrant abdominal pain. COMPARISON: CT of the abdomen and pelvis May 15, 2023 and right upper quadrant ultrasound Septe [facility] 2022. TECHNIQUE: 5.2 mCi of technetium 99m Choletec IV was injected at 12:49 PM on May 20, 2023. Im mediately following injection, imaging of the abdomen was carried out for 60 minutes in the anterior projection. FINDINGS: Hepatic uptake of radiotracer is prompt and homogeneous. Activity is identified within the small bowel and common bile duct at 10 minutes. Gallbladder activity is noted at 15 minutes. IMPRESSION: No evidence for acute cholecystitis. ACT 112: Negative or not required by law. Electronically signed by: Augustin Simon M.D. 05/20/2023 1:47 PM
--- NOTE | 2023-05-20 16:51 | Hospitalist Progress Note ---
Date of Service May 20, 2023 Assessment & Plan (1) Biliary colic: Plan: Symptomatic cholelithiasis Biliary colic R/O acute cholecystitis --Gall Bladder USD:Cholelithiasis and biliary sludge within a distended gallbladder. There is no definitive sonographic evidence of acute cholecystitis. Clinical and laboratory correlation will be required. If there is strong clinical concern for acute cholecystitis a nuclear hepatobiliary scan should be obtained. There is no intra or extrahepatic biliary ductal dilatation. Hepatomegaly and hepatic steatosis. A low suspicion indeterminant 1.0 cm hypoechoic focus in the right lobe is unchanged. --HIDA scan:No evidence for acute cholecystitis. Normal lipase Normal LFTs Continue IV fluids, Zosyn Clear liquid diet for now Appreciate surgery input Planned for laparoscopic cholecystectomy tomorrow N.p.o. after midnight Hypothyroidism Outpatient TSH Continue levothyroxine Bronchial asthma Past tobacco use No signs of acute exacerbation Morbid obesity BMI 40 DVT Px: SCDs for now CODE STATUS Full code Admission and Anticipated Discharge Date Admission Date: May 19, 2023 Subjective Patient is seen and examined at bedside Less abdominal pain today No new complaints Plan for laparoscopic cholecystectomy tomorrow Denies any nausea, vomiting, chest pain, dyspnea, dizziness Review of Systems Review of Systems: All systems reviewed & are unremarkable except as noted in Subjective Physical Exam Physical Exam: Physical Exam: Vitals signs as noted above General Appearance:Obese, no apparent distress Head: normocephalic, Atraumatic Eyes: normal inspection, EOMI Neck: supple, Trachea midline Respiratory/Chest: Normal breath sounds, CTA, No accessory muscle use Cardiovascular: S1, S2, No murmur Abdomen/GI:Soft, +mild RUQ, epigastric tender, Bowel sounds present Extremities/Musculoskeletal:normal inspection, no edema Neurologic/Psych:AAOX3, grossly no focal neurological deficits Skin: normal color, warm Results & Data Results & Data Vital Signs (Past 12 Hours) Vital Signs Temp Pulse Resp BP Pulse Ox O2 Del Method 05/20/23 15:40 36.8 C 79 16 130/89 99 Room Air 05/20/23 08:13 36.8 C 90 16 116/78 95 Room Air Laboratory Results Short CBC 05/19/23 05/20/23 Range/Units 21:07 07:02 WBC 5.35 6.12 (4.8-10.8) K/ul Hgb 13.3 12.2 (12.0-16.0) g/dl Hct 39.9 36.9 L (37.0-47.0) % Plt Count 208 210 (130-400) K/uL [facility] 05/20/23 07:02 Sodium 137 Potassium 3.6 Chloride 105 Carbon Dioxide 26 BUN 6 Creatinine 0.77 Glucose 84 Calcium 8.5 L
[2023-05-21] MEDS: D5W AND LACTATED RINGERS 1,000 ML IV SCH ×2 (03:24→15:30)
[2023-05-21] MEDS: KETOROLAC TROMETHAMINE 15 MG/ML VIAL IV PRN ×3 (05:05→21:04)
[2023-05-21] MEDS: LEVOTHYROXINE SODIUM 112 MCG TABLET PO SCH (05:34)
[2023-05-21] MEDS: PIPERACILLIN/TAZOBACTAM 4.5 GM in DEXTROSE 5% 100 ML IV SCH ×3 (05:35→21:04)
[2023-05-21] MEDS ORDERED: cefOXitin 2,000 MG in DEXTROSE 5% 50 ML IV SCH (06:00)
[2023-05-21 07:52] LABS: Hematocrit (blood only) 36.2 % (37.0-47.0); Hemoglobin 11.9 g/dl (12.0-16.0); Mean Corpuscular Hemoglobin 26.4 pg (25.0-34.0); Mean Corpuscular Hgb Conc 32.9 g/dL (32.0-36.0); Mean Corpuscular Volume 80.3 fL (80.0-100.0); Mean Platelet Volume 11.4 fL (9.4-12.4); Platelet Count 190 K/uL (130-400); RDW Coefficient of Variation 13.5 % (11.5-14.5); Red Blood Count 4.51 M/uL (4.20-5.40); White Blood Count 5.85 K/ul (4.8-10.8)
[2023-05-21 09:12] LABS: Albumin Level 3.6 gm/dl (3.4-5.0); BUN Creatinine Ratio 7.9 (10-20); Bilirubin Direct 0.1 mg/dl (0-0.2); Bilirubin,Total 0.5 mg/dl (0.2-1.0); Calcium 8.6 mg/dl (8.6-10.3); Creatinine Clr Calc Pharmacy 123.1 ml/min; Est GFR (African American) 121.1 ml/min; Est GFR (Non-African American) 104.5 ml/min; Potassium 3.5 mmol/L (3.5-5.1); Total Protein 6.7 gm/dl (6.0-8.3)
[2023-05-21] MEDS ORDERED: LACTATED RINGER'S 1,000 ML IV SCH (10:00)
[2023-05-21] MEDS: FLUoxetine HCL 20 MG CAP PO SCH (10:07)
[2023-05-21] MEDS: PATIENT'S OWN ORAL CONTRACEPTIVE PO SCH (10:07)
[2023-05-21] MEDS: PANTOprazole 40 MG TAB PO SCH (10:07)
[2023-05-21] MEDS ORDERED: INDOCYANINE GREEN 25 MG VIAL INJ ONE (10:13)
[2023-05-21] MEDS ORDERED: fentaNYL citrate PF 100 MCG/2 ML VIAL ONE ×2 (10:31→12:14)
[2023-05-21] MEDS ORDERED: MIDAZOLAM HCL 1 MG/ML 2ML VIAL ONE (10:31)
[2023-05-21] MEDS ORDERED: ACETAMINOPHEN 1000 MG/100 ML IV IV ONE (10:34)
[2023-05-21] MEDS ORDERED: ROCURONIUM BROMIDE 10 MG/ML 5 ML VIAL IV ONE ×3 (10:34→11:52)
[2023-05-21] MEDS ORDERED: ONDANSETRON INJ 2 MG/ML 2 ML VIAL ONE (10:39)
[2023-05-21] MEDS ORDERED: PROPOFOL IV EMULSION 10 MG/ML 20 ML VIAL IV ONE (10:39)
[2023-05-21] MEDS ORDERED: DEXAMETHASONE SOD INJ 4 MG/ML VIAL ONE (10:39)
[2023-05-21] MEDS ORDERED: LIDOCAINE 2% 2 ML VIAL/AMP(20MG/ML) INFIL ONE (10:39)
[2023-05-21] MEDS ORDERED: BUPIVACAINE 0.5 % 5 MG/1 ML MPF 30ML VIAL ONE (10:42)
--- NOTE | 2023-05-21 10:57 | Surgery Progress Note ---
Date of Service May 21, 2023 Assessment & Plan (1) Gallstones: Plan: Symptomatic cholelithiasis with biliary colic and likely chronic cholecystitis plan for robotic assisted laparoscopic cholecystectomy with possible cholangiogram risks discussed to include but not limited to bleeding, infection, retained stone, bile leak, open surgery, damage to surrounding structures including bile duct, need for future or more extensive surgery, failure to treat symptoms, and risks of anesthesia. (2) Biliary colic: Admission and Anticipated Discharge Date Admission Date: May 20, 2023 Subjective 33-year-old female admitted with cholelithiasis, HIDA scan negative for acute cholecystitis but still with some discomfort. Likely related to gallbladder. Review of Systems Review of Systems: All systems reviewed & are unremarkable except as noted in HPI & below Physical Exam Constitutional: WD/WN, vitals as above Respiratory: normal respiratory effort, lungs clear to auscultation Cardiovascular: RRR, no murmur, no edema Gastrointestinal (Abdomen): Percussion/Palpation: + abdomen tender (Mild epigastric and right upper quadrant tenderness to palpation) and abdomen soft; no guarding and abdomen not rigid Results & Data Vital Signs (Past 12 Hours) Vital Signs Temp Pulse Resp BP Pulse Ox O2 Del Method 05/21/23 10:49 36.8 C 86 18 147/88 H 98 Room Air 05/21/23 07:27 36.7 C 75 20 102/69 97 Room Air Laboratory Results Laboratory Results - last 24 hr 05/21/23 05/21/23 07:06 07:06 WBC 5.85 RBC 4.51 Hgb 11.9 L Hct 36.2 L MCV 80.3 MCH 26.4 MCHC 32.9 RDW Std Deviation 39.0 RDW Coeff of Roxanne 13.5 Plt Count 190 MPV 11.4 Sodium 138 Potassium 3.5 Chloride 105 Carbon Dioxide 26 Anion Gap 7 BUN 6 Creatinine 0.76 Est Cr Clr Drug Dosing 123.1 Est GFR ( Amer) 121.1 Est GFR (Non-Af Amer) 104.5 BUN/Creatinine Ratio 7.9 L Glucose 89 Calcium 8.6 Total Bilirubin 0.5 Direct Bilirubin 0.1 AST 14 ALT 14 Alkaline Phosphatase 36 Total Protein 6.7 Albumin 3.6 Diagnostic Findings NUCLEAR MEDICINE HEPATOBILIARY SCAN CLINICAL HISTORY: Right upper quadrant abdominal pain. COMPARISON: CT of the abdomen and pelvis May 15, 2023 and right upper quadrant ultrasound May 18, 2023. TECHNIQUE: 5.2 mCi of technetium 99m Choletec IV was injected at 12:49 PM on May 20, 2023. Immediately following injection, imaging of the abdomen was carried out for 60 minutes in the anterior projection. FINDINGS: Hepatic uptake of radiotracer is prompt and homogeneous. Activity is identified within the small bowel and common bile duct at 10 minutes. Gallbladder activity is noted at 15 minutes. IMPRESSION: No evidence for acute cholecystitis. ULTRASOUND RIGHT UPPER QUADRANT ABDOMEN CLINICAL HISTORY: Right upper quadrant abdominal pain. COMPARISON STUDY: Abdominal CT and ultrasound dated 05/15/2023. TECHNIQUE: Real-time, grayscale, and color flow sonography of the right upper quadrant of the abdomen was performed. Images are reviewed in the transverse and longitudinal planes. FINDINGS: Liver: The liver is enlarged and demonstrates heterogeneous increased echotexture indicating steatosis. Fatty sparing is seen adjacent to the gallbladder fossa. There is no intrahepatic biliary ductal dilatation. The main portal vein is patent. An indeterminant 1.0 cm hypoechoic focus in the right lobe is unchanged. This could not be corroborated on the recent abdominal CT scan and is of low suspicion. Gallbladder: The gallbladder is distended and contains shadowing stones as well as biliary sludge. There is no gallbladder wall thickening or pericholecystic fluid. A sonographic Powers's sign could not be assessed as the patient received analgesia. The common bile duct measures up to 0.3 cm in diameter. Pancreas: Visualized portions of the pancreatic head and body are normal in appearance. The splenic vein is patent. Right kidney: Survey images of the right kidney demonstrate normal size and e chotexture. There is no hydronephrosis. Ascites: None. IMPRESSION: 1. Cholelithiasis and biliary sludge within a distended gallbladder. There is no definitive sonographic evidence of acute cholecystitis. Clinical and laboratory correlation will be required. If there is strong clinical concern for acute cholecystitis a nuclear hepatobiliary scan should be obtained. 2. There is no intra or extrahepatic biliary ductal dilatation. 3. Hepatomegaly and hepatic steatosis. 4. A low suspicion indeterminant 1.0 cm hypoechoic focus in the right lobe is unchanged. PG Care Time/CCT Total # of Minutes Spent Total Time Spent with Patient: Total time spent is greater than 50% in coordination of care (as documented) at patient's floor/unit and/or counseling patient: Coding Level of Care Code 64806 SUB INP/OBS CARE MIN Diagnoses Gallstones K80.20 Biliary colic K80.50
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
[2023-05-21] MEDS ORDERED: ePHEDrine sulfate 50 MG/ML AMP IV PRN (11:12)
[2023-05-21] MEDS ORDERED: HYDROmorphone INJ 2 MG/ML SYR/VIAL IV PRN (11:12)
[2023-05-21] MEDS ORDERED: fentaNYL citrate PF 100 MCG/2 ML VIAL IV PRN (11:12)
[2023-05-21] MEDS ORDERED: ONDANSETRON INJ 2 MG/ML 2 ML VIAL IV PRN ×2 (11:12→14:13)
[2023-05-21] MEDS ORDERED: ATROPINE SULFATE 0.1 MG/ML 10ML SYR IV PRN (11:12)
[2023-05-21] MEDS ORDERED: PROMETHAZINE HCL 12.5 MG in SODIUM CHLORIDE 0.9% 50 ML IV PRN (11:12)
[2023-05-21] MEDS ORDERED: NEOSTIGMINE METHYLSULFATE 1 MG/ML 10ML VIAL ONE (12:15)
[2023-05-21] MEDS ORDERED: KETOROLAC 30 MG/ML VIAL ONE (12:15)
[2023-05-21] MEDS ORDERED: GLYCOPYRROLATE 0.2 MG/ML VIAL ONE (12:15)
--- NOTE | 2023-05-21 12:40 | Operative Report ---
PG Post Operative Report Pre & Post Diagnosis Operation Date: 05/21/23 11:00 Pre-Op Diagnosis: Symptomatic cholelithiasis with biliary colic and likely chronic cholecystitis Post-Op Diagnosis: Symptomatic cholelithiasis with biliary colic and likely chronic cholecystitis I identified the patient and participated in the time-out.: Yes Procedure Operation Date: 05/21/23 11:00 Actual Procedures p Robotic Laparoscopic Cholecystectomy(Not Applicable) - Kal Parham DO, EDELMIRA Surgeon Kal Parham DO, FACS Bag Presser Newton Gudino Estimated Blood Loss 20 Findings Consistent with Post-Op Diagnosis The critical view of safety obtained, cystic duct confirmed with ICG. Cystic duct and artery clipped and divided. Some bleeding from posterior branch controlled with cautery. Spillage of bile but no stones, right upper quadrant irrigated Specimens Gallbladder Anesthesia Type General Complications none Disposition Accompanied Patient To Recovery: No Disposition: Recovery Room Indications 33-year-old female presented to the emergency department with gallstones and biliary colic with likely chronic cholecystitis. HIDA scan showed no evidence of acute cholecystitis. After discussion of her options, plan for robotic cholecystectomy possible cholangiogram. The risks of the procedure were discussed, all questions were answered, and the patient agreed to proceed with surgery as planned. Description of Procedure The patient was properly identified, consented, and taken to the operating room where she was placed in the supine position. 2.5 mg of indocyanine green were administered IV approximately 45 min prior to the surgery. General endotracheal anesthesia was induced. SCDs and a safety belt were placed. Preoperative antibiotics were administered. The patient's abdomen was prepped and draped in the standard sterile fashion. A surgical timeout was performed and all parties were in agreement that this was the correct patient and procedure to be performed and we continued as planned. An incision was made just above the umbilicus and to the right of midline. Veress needle was inserted and saline drop test confirmed entry to the abdomen. The abdomen was insufflated with carbon dioxide which the patient tolerated incident. Veress needle was removed and the abdomen is entered using the Optiview technique and a 5 mm camera. The introducer was removed and the abdomen inspected. No damage from initial trocar placement or Veress needle placement was identified. There were no significant abnormalities to the 4 quadrants of the abdomen. 8 mm robotic ports were then placed on the left and right. An additional 5 mm credentialing assistant port was placed in the lateral right subcostal position. The patient was placed in reverse Trendelenburg position and rotated towards the left. The robot was then docked and the camera and robotic instruments were inserted. The gallbladder was distended and showed evidence of mild chronic inflammation. Omental adhesions were taken down with cautery and blunt dissection. The dome of the gallbladder was grasped by the credentialing assistant and retracted towards the left u pper quadrant and the infundibulum was retracted toward the right lower quadrant revealing Calot's triangle. Peritoneal attachments were taken down with electrocautery and blunt dissection. The cystic duct and artery were circumferentially dissected. A window of safety was obtained showing the cystic duct entering the gallbladder with no aberrant structures noted. We were able to identify the cystic duct utilizing the ICG. The cystic duct and artery were doubly clipped and divided. During the dissection there was some bleeding from a posterior branch of the cystic artery which was controlled with cautery. The gallbladder was then lifted off the gallbladder fossa with electrocautery. There was a small amount of bile spilled as the gallbladder tore due to the distention, but no stones were spilled. The right upper quadrant was copiously irrigated and hemostasis was found to be good. The gallbladder was placed in an Endo Catch bag and removed through the one of the port sites. The instruments were removed and the robot was undocked. The trochars were removed and the abdomen was allowed to collapse. The skin of all ports was closed with 4-0 Monocryl subcuticular sutures. Dermabond was placed over the wounds. The patient was extubated in the operating room and taken to the PACU where she recovered without apparent incident. All sponge, instrument and needle counts were correct at the conclusion of the procedure. The patient tolerated the procedure well. The nurse practitioner was present and scrubbed for the entirety of the case and was essential in positioning the patient, prepping and draping, retraction and exposure, driving the laparoscope, exchange of the robotic instruments removal of the gallbladder, closure of the incisions, and placement of the dressings. I attest to the content of the Intraoperative Record and any orders documented therein. Any exceptions are noted below.
[2023-05-21] MEDS ORDERED: KETOROLAC TROMETHAMINE 15 MG/ML VIAL IM PRN (13:05)
--- NOTE | 2023-05-21 13:33 | Hospitalist Progress Note ---
Date of Service May 21, 2023 Assessment & Plan (1) Biliary colic: Plan: Symptomatic cholelithiasis Biliary colic R/O acute cholecystitis --Gall Bladder USD:Cholelithiasis and biliary sludge within a distended gallbladder. There is no definitive sonographic evidence of acute cholecystitis. Clinical and laboratory correlation will be required. If there is strong clinical concern for acute cholecystitis a nuclear hepatobiliary scan should be obtained. There is no intra or extrahepatic biliary ductal dilatation. Hepatomegaly and hepatic steatosis. A low suspicion indeterminant 1.0 cm hypoechoic focus in the right lobe is unchanged. --HIDA scan:No evidence for acute cholecystitis. Normal lipase Normal LFTs Continue IV fluids, Zosyn for now once tolerating diet can d/c fluids, will defer to Gen surgery regarding continuation of antibiotics S/P Robotic assisted lap aida by DR. Parham POD #0 EBL 20ml post operatively pt is having chest pain radiating to R shoulder - likely 2/2 insufflation warm compress, prn toradol, encourage ambulation when able ECG obtained at beside, nsr, no st t wave changes will obtain CXR and trop out of completeness Hypothyroidism Outpatient TSH Continue levothyroxine Bronchial asthma Past tobacco use No signs of acute exacerbation Morbid obesity BMI 40 DVT Px: SCDs for now CODE STATUS Full code Dispo: await gen surgery clearance prior to d/c Pt was seen and examined in collaboration with Dr. Ramesh, please see addendum Admission and Anticipated Discharge Date Admission Date: May 20, 2023 Supervising Physician Co-Signing Physician Notes Patient is seen and examined at bedside. Patient had robotic laparoscopic cholecystectomy for symptomatic cholelithiasis. Patient had right-sided chest discomfort postoperatively. Denies any dyspnea, dizziness, nausea, vomiting. EKG showed nonspecific T wave abnormality. Initial troponin negative. Chest x- ray today showed no acute process. On exam patient is obese, no apparent distress, normocephalic/atraumatic, EOMI, normal breath sounds, clear to auscultation, S1-S2, no murmur, no pedal edema, abdomen soft,+ surgical scars, normal bowel sounds, alert, awake, oriented, grossly no focal deficits. Symptomatic cholelithiasis with biliary colic, likely chronic cholecystitis S/P cholecystectomy. Appreciate surgery input. Pain control. Trend cardiac enzymes. Will consider echo if needed. Less likely ACS. Diet as per surgery. I personally reviewed the record. Patient is interviewed and examined at bedside. Patient's care is coordinated with Sis Arriaza PA-C. Please refer to the documentation above for details of patient's presentation and for discussion of other issues. Subjective Pt seen and examined in room 354-2. Follow up abd pain, plan for lap aida today. SHe complains of abdominal pain, epigastric/ruq, nervous for procedure, only other surgery was c section. Denies n/v, f/c/s, chest pain, sob. She has been NPO. Review of Systems Review of Systems: All systems reviewed & are unremarkable except as noted in HPI & below Physical Exam Physical Exam: Constitutional: WD/WN, vitals as above, NAD, sitting up in bed, pleasant, conversing easily Head: Normocephalic, Atraumatic Eyes: PERRL, conjunctivae normal, anicteric sclerae ENMT: external ear and nose normal, oropharynx normal Neck: trachea midline, no thyromegaly normal visual inspection Respiratory: normal respiratory effort, lungs clear to auscultation, no wheeze, rales, rhonchi. Normal insp/exp effort, no accessory muscle use Cardiovascular: RRR, no murmur, no edema Vessels: no JVD or carotid bruit Chest: normal inspection of chest Abdomen: normal bowel sounds, obese abd, soft, nontender, no hepatosplenomegaly Musculoskeletal: no cyanosis or clubbing, extremities motor strength 5/5 Skin: no rashes, warm and dry normal turgor Neurologic: PERRL, EOMI, accommodation nl, no face palsy, no dysarthria CN's II-XI intact bilaterally and moves all extremities Psychiatric: A+Ox3, euthymic affect Lymphatic: no cervical or axillary lymphadenopathy : deferred Results & Data Results & Data Vital Signs (Past 12 Hours) Vital Signs Temp Pulse Pulse Resp BP BP Pulse Ox 05/21/23 13:20 71 24 129/86 98 05/21/23 13:10 74 18 134/86 96 05/21/23 13:00 36.4 C L 81 22 126/94 95 05/21/23 10:49 36.8 C 86 18 147/88 H 98 05/21/23 07:27 36.7 C 75 20 102/69 97 O2 Del Method O2 Flow Rate 05/21/23 13:20 Oxymask 2 05/21/23 13:10 Oxymask 5 05/21/23 13:00 Oxymask 5 05/21/23 10:49 Room Air 05/21/23 07:27 Room Air Diagnostic Findings Operation Date: 05/21/23 11:00 Pre-Op Diagnosis: Symptomatic cholelithiasis with biliary colic and likely chronic cholecystitis Post-Op Diagnosis: Symptomatic cholelithiasis with biliary colic and likely chronic cholecystitis I identified the patient and participated in the time-out.: Yes Procedure Operation Date: 05/21/23 11:00 Actual Procedures p Robotic Laparoscopic Cholecystectomy(Not Applicable) - Kal Parham DO, FACS Surgeon Kal Parham DO, FACS [employer] Newton Gudino Estimated Blood Loss 20 Medications Administered Current Inpatient Medications Acetaminophen (Acetaminophen 325 Mg Tab) 650 mg PO Q6H PRN PRN Reason: Fever/Pain Stop: 06/18/23 00:36 Atropine Sulfate (Atropine Sulfate 0.1 Mg/Ml 10ml Syr) 0.5 mg IV Q1M PRN PRN Reason: PACU Use-HR<40 &/or Bradycardi Stop: 05/21/23 19:13 Ephedrine Sulfate (Ephedrine Sulfate 50 Mg/Ml Amp) 5 mg IV Q5M PRN PRN Reason: PACU Use Only-SBP<90 mmHg Stop: 05/21/23 19:13 Fentanyl Citrate (Fentanyl Citrate Pf 100 Mcg/2 Ml Vial) 50 mcg IV Q5M PRN PRN Reason: PACU Use Only-Pain Stop: 05/21/23 19:13 Last Admin: 05/21/23 13:35 Dose: 50 mcg Fluoxetine HCl (Fluoxetine Hcl 20 Mg Cap) 40 mg PO DAILY SHAINA Stop: 06/18/23 08:59 Last Admin: 05/21/23 10:07 Dose: Not Given Hydromorphone HCl (Hydromorphone Inj 2 Mg/Ml Syr/Vial) 0.5 mg IV Q5M PRN PRN Reason: PACU Use Only-Pain Stop: 05/21/23 19:13 Promethazine HCl 12.5 mg/ (Sodium Chloride) 50.5 mls @ 202 mls/hr IV Q6H PRN PRN Reason: Nausea And Vomiting Stop: 06/18/23 00:36 Piperacillin Sod/Tazobactam (Sod 4.5 gm/ Dextrose) 120 mls @ 30 mls/hr IV Q8H SHAINA; Protocol Stop: 05/22/23 02:01 Last Infusion: 05/21/23 09:35 Dose: Infused Dextrose/Lactated Ringer's (D5w And Lactated Ringers) 1,000 mls @ 60 mls/hr IV .[id number] SHAINA Stop: 06/18/23 12:29 Last Infusion: 05/21/23 10:35 Dose: 0 mls/hr Lactated Ringer's (Lr) 1,000 mls @ 15 mls/hr IV .Q24H SHAINA Stop: 06/20/23 09:59 Last Infusion: 05/21/23 11:16 Dose: Infused Piperacillin Sod/Tazobactam (Sod 4.5 gm/ Dextrose) 100 mls @ 25 mls/hr IV Q8H SHAINA; Protocol Stop: 05/29/23 05:59 Promethazine HCl 12.5 mg/ (Sodium Chloride) 50.5 mls @ 204 mls/hr IV ONCE PRN PRN Reason: PACU Use Only-Nausea/Vomiting Stop: 05/21/23 19:13 Cefoxitin Sodium 2,000 mg/ (Dextrose) 60 mls @ 100 mls/hr IV PREOP SHAINA; Protocol Stop: 05/22/23 05:59 Last Admin: 05/21/23 11:49 Dose: 100 mls/hr Ketorolac Tromethamine (Ketorolac Tromethamine 15 Mg/Ml Vial) 15 mg IV Q4H PRN PRN Reason: Pain Stop: 05/24/23 00:36 Last Admin: 05/21/23 05:05 Dose: 15 mg Ketorolac Tromethamine (Ketorolac Tromethamine 15 Mg/Ml Vial) 15 mg IM Q6H PRN PRN Reason: Pain Stop: 05/26/23 13:04 Levothyroxine Sodium (Levothyroxine Sodium 112 Mcg Tablet) 112 mcg PO DAILYBB SHAINA Stop: 06/18/23 06:29 Last Admin: 05/21/23 05:34 Dose: 112 mcg Lorazepam (Lorazepam 0.5 Mg Tab) 0.5 mg PO TID PRN PRN Reason: Anxiety Stop: 06/18/23 00:36 Miscellaneous (Patient's Own Oral Contraceptive) 1 each PO DAILY SHAINA Stop: 06/19/23 08:59 Last Admin: 05/21/23 10:07 Dose: Not Given Ondansetron HCl (Ondansetron Inj 2 Mg/Ml 2 Ml Vial) 4 mg IV ONCE PRN PRN Reason: PACU Use Only-Nausea/Vomiting Stop: 05/21/23 19:13 Last Admin: 05/21/23 13:24 Dose: 4 mg Oxycodone HCl (Oxycodone Hcl Ir 5 Mg Tab (Immediate Release)) 5 - 10 mg PO QID PRN PRN Reason: Pain Stop: 06/02/23 00:36 Pantoprazole Sodium (Pantoprazole 40 Mg Tab) 40 mg PO DAILY SHAINA Stop: 06/18/23 08:59 Last Admin: 05/21/23 10:07 Dose: Not Given
--- NOTE | 2023-05-21 15:16 | XRay Report ---
XR chest 1V portable HISTORY: 33 years-old Female chest pain acute chest pain COMPARISON: 12/28/2018 TECHNIQUE: AP view of the chest FINDINGS: Cardiac mediastinal and hilar silhouettes are within normal limits. No pneumothorax, pleural effusion , airspace consolidation or pulmonary edema. Azygos lobe and fissure. Bones appear unremarkable. IMPRESSION: No acute process. ACT 112: Negative or not required by law. The above report was generated using voice recognition software. It may contain grammatical, syntax o r spelling errors. Electronically signed by: Trevor Walls M.D. 05/21/2023 3:15 PM
[2023-05-21] MEDS ORDERED: FAMOTIDINE 20 MG in SYRINGE 3 ML IV ONE (15:30)
--- NOTE | 2023-05-21 15:59 | Electrocardiogram Report ---
Test Reason : Blood Pressure : / mmHG Vent. Rate : 072 BPM Atrial Rate : 072 BPM P-R Int : 152 ms QRS Dur : 090 ms QT Int : 416 ms P-R-T Axes : 030 016 014 degrees QTc Int : 455 ms Normal sinus rhythm Nonspecific T wave abnormality Abnormal ECG When compared with ECG of 15-MAY-2023 18:10, No significant change was found Confirmed by William Lake ([id number]) on 05/21/2023 3:59:35 PM Referred By: REFERRED SELF Confirmed By:William Lake
[2023-05-22] MEDS: KETOROLAC TROMETHAMINE 15 MG/ML VIAL IV PRN ×2 (05:36→12:24)
[2023-05-22] MEDS: LEVOTHYROXINE SODIUM 112 MCG TABLET PO SCH (05:36)
[2023-05-22] MEDS: PATIENT'S OWN ORAL CONTRACEPTIVE PO SCH (05:39)
[2023-05-22] MEDS ORDERED: PIPERACILLIN/TAZOBACTAM 4.5 GM in DEXTROSE 5% MINI-B 100 ML IV SCH (06:00)
[2023-05-22 08:14] LABS: Hematocrit (blood only) 33.8 % (37.0-47.0); Mean Corpuscular Hemoglobin 26.1 pg (25.0-34.0); Mean Corpuscular Hgb Conc 32.5 g/dL (32.0-36.0); Mean Corpuscular Volume 80.3 fL (80.0-100.0); Mean Platelet Volume 11.5 fL (9.4-12.4); Platelet Count 204 K/uL (130-400); RDW Coefficient of Variation 13.4 % (11.5-14.5); RDW Standard Deviation 38.5 fL (36.4-46.3); Red Blood Count 4.21 M/uL (4.20-5.40); White Blood Count 7.19 K/ul (4.8-10.8)
[2023-05-22] MEDS: PANTOprazole 40 MG TAB PO SCH (08:18)
[2023-05-22] MEDS: FLUoxetine HCL 20 MG CAP PO SCH (08:18)
[2023-05-22] MEDS: D5W AND LACTATED RINGERS 1,000 ML IV SCH (08:35)
[2023-05-22 08:40] LABS: Albumin Globulin Ratio 1.2 (0.9-2); Albumin Level 3.5 gm/dl (3.4-5.0); BUN Creatinine Ratio 5.2 (10-20); Bilirubin,Total 0.5 mg/dl (0.2-1.0); Calcium 8.4 mg/dl (8.6-10.3); Creatinine Clr Calc Pharmacy 121.5 ml/min; Est GFR (African American) 119.2 ml/min; Est GFR (Non-African American) 102.9 ml/min; Globulin 2.9 gm/dl (2.5-4.0); Potassium 3.4 mmol/L (3.5-5.1); Total Protein 6.4 gm/dl (6.0-8.3)
[2023-05-22] MEDS ORDERED: POTASSIUM CHLORIDE CRTAB 20 MEQ TABCR PO ONE (09:21)
--- NOTE | 2023-05-22 10:18 | Surgery Progress Note ---
Date of Service May 22, 2023 Assessment & Plan (1) S/P laparoscopic cholecystectomy: Plan: POD #1 robotic cholecystectomy, doing well Advance to regular diet Discharge to home if tolerated Follow-up in 2 weeks Tylenol and ibuprofen as needed for pain, patient has an allergy to prior narcotic Wound care instructions, activity restrictions, return precautions given Admission and Anticipated Discharge Date Admission Date: May 20, 2023 Subjective POD #1 robotic cholecystectomy for chronic cholecystitis. Had some right upper quadrant, shoulder, and epigastric pain yesterday following surgery. This is improving. She tolerated liquids without difficulty. She has ambulated multiple times. Physical Exam Constitutional: WD/WN, vitals as above + obese Gastrointestinal (Abdomen): Inspection/Auscultation: + abdominal surgical incision (Healing well, no infection) Percussion/Palpation: + abdomen tender (Appropriately tender to palpation) and abdomen soft; no guarding and abdomen not rigid Results & Data Vital Signs (Past 12 Hours) Vital Signs Temp Pulse Resp BP BP Pulse Ox O2 Del Method 05/22/23 07:42 36.7 C 94 H 18 122/73 96 Room Air 05/22/23 03:17 36.7 C 64 16 137/70 96 Room Air 05/21/23 22:39 36.8 C 55 L 16 126/82 97 Room Air Laboratory Results Laboratory Results - last 24 hr 05/21/23 05/21/23 05/21/23 14:47 17:53 23:17 WBC RBC Hgb Hct MCV MCH MCHC RDW Std Deviation RDW Coeff of Roxanne Plt Count MPV Sodium Potassium Chloride Carbon Dioxide Anion Gap BUN Creatinine Est Cr Clr Drug Dosing Est GFR ( Amer) Est GFR (Non-Af Amer) BUN/Creatinine Ratio Glucose Calcium Total Bilirubin AST ALT Alkaline Phosphatase Troponin I High Sens < 2.3 < 2.3 < 2.3 Total Protein Albumin Globulin Albumin/Globulin Ratio 05/22/23 05/22/23 07:49 07:49 WBC 7.19 RBC 4.21 Hgb 11.0 L Hct 33.8 L MCV 80.3 MCH 26.1 MCHC 32.5 RDW Std Deviation 38.5 RDW Coeff of Roxanne 13.4 Plt Count 204 MPV 11.5 Sodium 137 Potassium 3.4 L Chloride 105 Carbon Dioxide 25 Anion Gap 7 BUN 4 L Creatinine 0.77 Est Cr Clr Drug Dosing 121.5 Est GFR ( Amer) 119.2 Est GFR (Non-Af Amer) 102.9 BUN/Creatinine Ratio 5.2 L Glucose 102 H Calcium 8.4 L Total Bilirubin 0.5 AST 31 ALT 37 Alkaline Phosphatase 40 Troponin I High Sens Total Protein 6.4 Albumin 3.5 Globulin 2.9 Albumin/Globulin Ratio 1.2 PG Care Time/CCT Total # of Minutes Spent Total Time Spent with Patient: Total time spent is greater than 50% in coordination of care (as documented) at patient's floor/unit and/or counseling patient: Coding Level of Care Code 57635 Post Operative Follow-Up Diagnoses S/P laparoscopic cholecystectomy Z90.49
--- NOTE | 2023-05-22 13:21 | Discharge Summary ---
Discharge Summary Date of Service May 22, 2023 Notes For Next Care Provider Patient hospitalized for acute cholecystitis status post laparoscopic cholecystectomy. Postop course complicated with right upper shoulder discomfort and chest pain likely secondary to insufflation. She is being discharged with appropriate general surgery follow-up. No medication changes. Medication Changes From Visit None Admission HPI Per Admitting Provider History obtained from patient and records. Medical history significant for hypothyroidism, bronchial asthma, Tourette disorder, mood disorder, cholelithiasis, past tobacco abuse. Last confinement under OB service for intrauterine status post primary LTCS. 4 days ago, patient noted stabbing pain in the upper abdomen associated with poor appetite and nausea symptoms. Patient seen at PCPs office, Outpatient labs and abdominal ultrasound recommended. Patient went to ER for worsening symptoms. Gallbladder ultrasound showed multiple shadowing stones within the gallbladder without wall thickening. Sonographic Powers sign was negative. Outpatient General Surgery consultation recommended. Patient scheduled to see specialist tomorrow. Patient returned to ER for worsening symptoms. No chest pain, no SOB. Poor appetite, some chills. IV Zosyn administered at the ER. Medical History as above Surgical History : Tonsillectomy/adenoidectomy, Family History : Alcoholism, throat cancer, cholelithiasis, thyroid disease Personal/Social history : Past tobacco abuse, no EtOH intake, ecommerce marketing specialist Admission Exam Per Admitting Provider GENERAL: Comfortable, pleasant, morbidly obese, no respiratory distress SKIN: Normal color, warm HEENT: [place] palpebral conjunctivae, no ptosis, dry buccal mucosa NECK : Supple, no tenderness CHEST : CTA, no tenderness HEART : RRR, no obvious murmurs ABDOMEN: Some distention, epigastric tenderness EXTREMITIES : Minimal LE swelling, no LE tenderness, no other conspicuous deformities noted NEUROLOGIC : Coherent, no facial asymmetry, no other gross focality Principal Dx & Hospital Course #1 = Principal Diagnosis (1) Biliary colic: Symptomatic cholelithiasis Biliary colic R/O acute cholecystitis --Gall Bladder USD:Cholelithiasis and biliary sludge within a distended gallbladder. There is no definitive sonographic evidence of acute cholecystitis. Clinical and laboratory correlation will be required. If there is strong clinical concern for acute cholecystitis a nuclear hepatobiliary scan should be obtained. There is no intra or extrahepatic biliary ductal dilatation. Hepatomegaly and hepatic steatosis. A low suspicion indeterminant 1.0 cm hypoechoic focus in the right lobe is unchanged. --HIDA scan:No evidence for acute cholecystitis. Normal lipase Normal LFTs Pt tolerating diet, D/C fluids S/P Robotic assisted lap aida by DR. Parham POD #1 EBL 20ml post operatively pt is having chest pain radiating to R shoulder - likely 2/2 insufflation, trop x 3, ecg, cxr unremarkable encourage ambulation incentive spirometry, apap/ibuprofen at d/c Hypothyroidism Outpatient TSH Continue levothyroxine Bronchial asthma Past tobacco use No signs of acute exacerbation Morbid obesity BMI 40 DVT Px: SCDs for now CODE STATUS Full code Dispo: D/C to home today Pt was seen and examined in collaboration with Dr. Ramesh, please see addendum Discharge Exam Constitutional: WD/WN, vitals as above, NAD, sitting up in bed, pleasant, conversing easily Head: Normocephalic, Atraumatic Eyes: PERRL, conjunctivae normal, anicteric sclerae ENMT: external ear and nose normal, oropharynx normal Neck: trachea midline, no thyromegaly normal visual inspection Respiratory: normal respiratory effort, lungs clear to auscultation, no wheeze, rales, rhonchi. Normal insp/exp effort, no accessory muscle use Cardiovascular: RRR, no murmur, no edema Vessels: no JVD or carotid bruit Chest: normal inspection of chest Abdomen: normal bowel sounds, obese abd, soft, + laparoscopic incision x 4, no surrounding erythema, nontender Musculoskeletal: no cyanosis or clubbing, extremities motor strength 5/5 Skin: no rashes, warm and dry normal turgor Neurologic: PERRL, EOMI, accommodation nl, no face palsy, no dysarthria CN's II-XI intact bilaterally and moves all extremities Psychiatric: A+Ox3, euthymic affect Lymphatic: no cervical or axillary lymphadenopathy : deferred Updated Medication List Medication Instructions Recorded Confirmed Type fluoxetine 20 mg capsule 40 mg PO DAILY 12/30/20 05/18/23 History levonorgestrel 0.15 mg-ethinyl 1 tab PO QAM 05/15/23 05/18/23 History estradiol 30 mcg tablets,3 mos pack(91) levothyroxine 112 mcg tablet 112 mcg PO DAILYBB 05/15/23 05/18/23 History phentermine 37.5 mg capsule 37.5 mg PO QAM 05/15/23 05/18/23 History pantoprazole 40 mg tablet,delayed 40 mg PO DAILY #14 tabs 05/16/23 05/18/23 Rx release (Protonix) Hospital Stay Data Consultations 05/19/23 00:10 ED Decision to Admit Stat 05/19/23 09:22 Consult General Surgery Routine Procedures Performed Operation Date: 05/21/23 11:00 Actual Procedures p Robotic Laparoscopic Cholecystectomy(Not Applicable) - Kal Parham DO, FACS Diagnostic Imagining Performed Gallbladder Ultrasound 05/18/23 22:01 ULTRASOUND RIGHT UPPER QUADRANT ABDOMEN CLINICAL HISTORY: Right upper quadrant abdominal pain. COMPARISON STUDY: Abdominal CT and ultrasound dated 05/15/2023. TECHNIQUE: Real-time, grayscale, and color flow sonography of the right upper quadrant of the abdomen was performed. Images are reviewed in the transverse and longitudinal planes. FINDINGS: Liver: The liver is enlarged and demonstrates heterogeneous increased echotexture indicating steatosis. Fatty sparing is seen adjacent to the gallbladder fossa. There is no intrahepatic biliary ductal dilatation. The main portal vein is patent. An indeterminant 1.0 cm hypoechoic focus in the right lobe is unchanged. This could not be corroborated on the recent abdominal CT scan and is of low suspicion. Gallbladder: The gallbladder is distended and contains shadowing stones as well as biliary sludge. There is no gallbladder wall thickening or pericholecystic fluid. A sonographic Powers's sign could not be assessed as the patient received analgesia. The common bile duct measures up to 0.3 cm in diameter. Pancreas: Visualized portions of the pancreatic head and body are normal in appearance. The splenic vein is patent. Right kidney: Survey images of the right kidney demonstrate normal size and echotexture. There is no hydronephrosis. Ascites: None. IMPRESSION: 1. Cholelithiasis and biliary sludge within a distended gallbladder. There is no definitive sonographic evidence of acute cholecystitis. Clinical and laboratory correlation will be required. If there is strong clinical concern for acute cholecystitis a nuclear hepatobiliary scan should be obtained. 2. There is no intra or extrahepatic biliary ductal dilatation. 3. Hepatomegaly and hepatic steatosis. 4. A low suspicion indeterminant 1.0 cm hypoechoic focus in the right lobe is unchanged. ACT 112: Negative or not required by law. Electronically signed by: Idris Ramírez M.D. 05/18/2023 11:45 PM Hepatobiliary Scan Nuclear Medicine 05/20/23 13:00 NUCLEAR MEDICINE HEPATOBILIARY SCAN CLINICAL HISTORY: Right upper quadrant abdominal pain. COMPARISON: CT of the abdomen and pelvis May 15, 2023 and right upper quadrant ultrasound May 18, 2023. TECHNIQUE: 5.2 mCi of technetium 99m Choletec IV was injected at 12:49 PM on May 20, 2023. Immediately following injection, imaging of the abdomen was carried out for 60 minutes in the anterior projection. FINDINGS: Hepatic uptake of radiotracer is prompt and homogeneous. Activity is identified within the small bowel and common bile duct at 10 minutes. Gallbladder activity is noted at 15 minutes. IMPRESSION: No evidence for acute cholecystitis. ACT 112: Negative or not required by law. Electronically signed by: Augustin Simon M.D. 05/20/2023 1:47 PM Chest X-Ray 05/21/23 14:31 XR chest 1V portable HISTORY: 33 years-old Female chest pain acute chest pain COMPARISON: 12/28/2018 TECHNIQUE: AP view of the chest FINDINGS: Cardiac mediastinal and hilar silhouettes are within normal limits. No pneumothorax, pleural effusion, airspace consolidation or pulmonary edema. Az ygos lobe and fissure. Bones appear unremarkable. IMPRESSION: No acute process. ACT 112: Negative or not required by law. The above report was generated using voice recognition software. It may contain grammatical, syntax or spelling errors. Electronically signed by: Trevor Walls M.D. 05/21/2023 3:15 PM Pending Results Patient Have Any Pending Studies at Discharge: Yes Discharge Instructions Given to Patient (Per Discharging Provider) You have skin glue over your incisions called dermabond. you may shower with this on. It will tend to dissolve and fall off within a couple weeks. Do not pick at the skin glue You may purchase Tylenol and/or Ibuprofen over the counter if needed for additional pain control over the next few days. Take per manufacturers instructions. Please follow up with Primary Care Provider and Surgeon as scheduled. Diet as tolerated. Recommend starting with low fat diet and advance slowly as tolerated. Continue all other medications as prescribed. Total Time Total Time Spent Total Time Spent (In Minutes): 45 minutes Supervising Physician Co-Signing Physician Notes Patient is seen and examined at bedside on day of discharge. Patient doing well postoperatively. Tolerating diet. Discussed with surgery today. Denies any dyspnea, dizziness, nausea, vomiting, abdominal pain. Chest pain much improved. On exam patient is obese, no apparent distress, normocephalic/atraumatic, EOMI, normal breath sounds, clear to auscultation, S1-S2, no murmur, no pedal edema, abdomen soft,+ surgical scars, normal bowel sounds, alert, awake, oriented, grossly no focal deficits. Symptomatic cholelithiasis with biliary colic, likely chronic cholecystitis S/P cholecystectomy. Appreciate surgery input. Pain control. Troponins, EKG, chest x-ray normal. Tolerated advance diet. Advised to follow-up with PCP, surgery upon discharge. I personally reviewed the record. Patient is interviewed and examined at bedside. Patient's care is coordinated with Sis Arriaza PA-C. Please refer to the documentation above for details of patient's presentation and for discussion of other issues.
== END 2023-05-22 16:27 | disposition home or self-care (01) | DRG 418 ==
LOC: ED 21:30 → 3W 21:30